=== PATIENT | male | born 1935 | race American Indian/Alaskan Native ===

== ENCOUNTER 2017-10-04 16:10 | Emergency (ER) | payer MEDICARE, BC ==
[~2017-10-04] VITALS: Ht 177.8 cm; Wt 75.7 kg
[~2017-10-04 16:10] MED LIST: APIX5TAB3 PO; ASPI81TA52 PO; ATOR40TA PO; DILT240C94 PO; DUTA0.5C40 PO; FLO0.4C PO; LISI-600 PO; LORA1TAB PO; NORCO10T PO; PANT40TA39 PO; PNV1TABL75 PO; PRAM0.253 PO
[2017-10-04 16:43] LABS: BASOPHILS % (AUTO) 0.5 % (0-1); EOSINOPHILS # (AUTO) 0.1 X10'3 (0-0.9); EOSINOPHILS % (AUTO) 1.7 % (0-6); HEMATOCRIT 42.5 % (42.0-52.0); HEMOGLOBIN 14.5 g/dl (14.0-17.9); LYMPHOCYTES # (AUTO) 2.4 X10'3 (1.1-4.8); LYMPHOCYTES % (AUTO) 42.7 % (21-51); MEAN CORPUSCULAR HEMOGLOBIN 29.8 PG (27.0-31.0); MEAN CORPUSCULAR HGB CONC 34.1 % (33.0-36.5); MEAN CORPUSCULAR VOLUME 87.4 FL (78-98); MEAN PLATELET VOLUME 6.4 FL (7.4-10.4); MONOCYTES # (AUTO) 0.5 X10'3 (0-0.9); MONOCYTES % (AUTO) 9.7 % (2-12); NEUTROPHILS # (AUTO) 2.6 X10'3 (1.8-7.7); NEUTROPHILS % (AUTO) 45.4 % (42-75); PLATELET COUNT 292 X10'3 (140-440); RED BLOOD COUNT 4.86 X10'6 (4.70-6.10); RED CELL DISTRIBUTION WIDTH 13.7 % (11.5-14.5); WHITE BLOOD COUNT 5.6 X10'3 (4.5-11.0)
[2017-10-04 16:53] LABS: PARTIAL THROMBOPLASTIN TIME 33 SECONDS (22-32); PROTHROMBIN TIME 10.2 SECONDS (9.0-12.0)
[2017-10-04 16:58] LABS: ALANINE AMINOTRANSFERASE 27 U/L (12-78); ALBUMIN 4.2 G/DL (3.4-5.0); ALBUMIN/GLOBULIN RATIO 1.1 (1.1-1.5); ALKALINE PHOSPHATASE 79 IU/L (46-116); ANION GAP 8 (8-16); ASPARTATE AMINO TRANSFERASE 24 U/L (10-37); BILIRUBIN,TOTAL 0.3 MG/DL (0.1-1.0); BLOOD UREA NITROGEN 11 MG/DL (7-18); BUN/CREATININE RATIO 12.4 (5.4-32.0); CALCIUM 8.7 MG/DL (8.5-10.1); CHLORIDE 104 MMOL/L (99-107); CREATININE 0.89 MG/DL (0.60-1.10); GLUCOSE 98 MG/DL (70-104); POTASSIUM 3.6 MMOL/L (3.5-5.1); SODIUM 143 MMOL/L (135-145); TOTAL CARBON DIOXIDE 30.9 MMOL/L (24-32); TOTAL PROTEIN 8.1 G/DL (6.4-8.2); eGFR 82 ML/MIN
[2017-10-04] MEDS ORDERED: aspirin 81mg tab.chew PO ONE (17:55)
[2017-10-04] MEDS ORDERED: nitroGLYCERIN 0.4mg SUBLingual tab SL PRN (17:55)
[2017-10-04 19:04] VITALS: BP 151/65
== END 2017-10-04 19:07 | disposition home or self-care (01) ==
LOC: ER 16:11
DX: R07.9 Chest pain, unspecified (principal); I25.10 Atherosclerotic heart disease of native coronary artery without angina pectoris; K21.9 Gastro-esophageal reflux disease without esophagitis; I48.0 Paroxysmal atrial fibrillation; E78.00 Pure hypercholesterolemia, unspecified; I25.2 Old myocardial infarction; G89.29 Other chronic pain; M79.7 Fibromyalgia; Z88.2 Allergy status to sulfonamides; Z79.01 Long term (current) use of anticoagulants; Z79.82 Long term (current) use of aspirin; Z95.1 Presence of aortocoronary bypass graft; Z98.890 Other specified postprocedural states
CPT/HCPCS: 36415; 71045; 80053; 84484; 85025; 85610; 85730; 93005; 99285

== ENCOUNTER 2018-06-08 08:13 | Emergency (ER) | payer MEDICARE, BC ==
[~2018-06-08] VITALS: Ht 177.8 cm; Wt 75.4 kg
--- NOTE | 2018-06-08 09:05 | NUR ---
patient reports both raking leaves and "struggling" to move an oven yesterday
[2018-06-08 09:09] LABS: BASOPHILS # (AUTO) 0.1 X10'3 (0-0.2); BASOPHILS % (AUTO) 1.3 % (0-1); EOSINOPHILS # (AUTO) 0.1 X10'3 (0-0.9); EOSINOPHILS % (AUTO) 1.5 % (0-6); HEMATOCRIT 44.5 % (42.0-52.0); HEMOGLOBIN 14.9 g/dl (14.0-17.9); LYMPHOCYTES # (AUTO) 2.3 X10'3 (1.1-4.8); LYMPHOCYTES % (AUTO) 32.2 % (21-51); MEAN CORPUSCULAR HEMOGLOBIN 29.9 PG (27.0-31.0); MEAN CORPUSCULAR HGB CONC 33.5 % (33.0-36.5); MEAN CORPUSCULAR VOLUME 89.3 FL (78-98); MEAN PLATELET VOLUME 7.1 FL (7.4-10.4); MONOCYTES # (AUTO) 0.7 X10'3 (0-0.9); MONOCYTES % (AUTO) 9.7 % (2-12); NEUTROPHILS % (AUTO) 55.3 % (42-75); PLATELET COUNT 370 X10'3 (140-440); RED BLOOD COUNT 4.99 X10'6 (4.70-6.10); RED CELL DISTRIBUTION WIDTH 14.9 % (11.5-14.5); WHITE BLOOD COUNT 7.3 X10'3 (4.5-11.0)
[2018-06-08 09:43] LABS: ALANINE AMINOTRANSFERASE 30 U/L (12-78); ALBUMIN 3.6 G/DL (3.4-5.0); ALBUMIN/GLOBULIN RATIO 1.1 (1.1-1.5); ALKALINE PHOSPHATASE 62 IU/L (46-116); ANION GAP 7 (8-16); ASPARTATE AMINO TRANSFERASE 20 U/L (10-37); BILIRUBIN,TOTAL 0.4 MG/DL (0.1-1.0); BLOOD UREA NITROGEN 12 MG/DL (7-18); BUN/CREATININE RATIO 17.6 (5.4-32.0); CALCIUM 8.3 MG/DL (8.5-10.1); CHLORIDE 102 MMOL/L (99-107); CREATININE 0.68 MG/DL (0.60-1.10); GLUCOSE 108 MG/DL (70-104); POTASSIUM 3.7 MMOL/L (3.5-5.1); SODIUM 140 MMOL/L (135-145); TOTAL CARBON DIOXIDE 31.1 MMOL/L (24-32); TOTAL PROTEIN 6.8 G/DL (6.4-8.2); eGFR > 90 ML/MIN
[2018-06-08 09:44] LABS: INR 1.1 INR; PARTIAL THROMBOPLASTIN TIME 34 SECONDS (22-32); PROTHROMBIN TIME 10.8 SECONDS (9.0-12.0)
[2018-06-08 10:30] VITALS: BP 117/78
== END 2018-06-08 10:35 | disposition home or self-care (01) ==
LOC: ER 08:13
DX: R07.89 Other chest pain (principal); R06.02 Shortness of breath; R42 Dizziness and giddiness; I25.10 Atherosclerotic heart disease of native coronary artery without angina pectoris; E78.00 Pure hypercholesterolemia, unspecified; I10 Essential (primary) hypertension; I25.2 Old myocardial infarction; G89.29 Other chronic pain; Z98.61 Coronary angioplasty status; Z98.890 Other specified postprocedural states; Z88.2 Allergy status to sulfonamides; Z88.8 Allergy status to other drugs, medicaments and biological substances; Z79.82 Long term (current) use of aspirin; Z79.899 Other long term (current) drug therapy
CPT/HCPCS: 36415; 71045; 80053; 84484; 85025; 85610; 85730; 93005; 99284

== ENCOUNTER 2018-10-12 11:31 | Emergency (ER) | payer MEDICARE, BC ==
[~2018-10-12] VITALS: Ht 177.8 cm; Wt 74.1 kg
[2018-10-12 12:27] LABS: BASOPHILS % (AUTO) 0.7 % (0-1); EOSINOPHILS % (AUTO) 0.4 % (0-6); HEMATOCRIT 39.5 % (42.0-52.0); HEMOGLOBIN 13.2 g/dl (14.0-17.9); LYMPHOCYTES # (AUTO) 1.7 X10'3 (1.1-4.8); LYMPHOCYTES % (AUTO) 25.2 % (21-51); MEAN CORPUSCULAR HEMOGLOBIN 29.5 PG (27.0-31.0); MEAN CORPUSCULAR HGB CONC 33.4 g/dL (33.0-36.5); MEAN CORPUSCULAR VOLUME 88.3 FL (78-98); MEAN PLATELET VOLUME 6.6 FL (7.4-10.4); MONOCYTES # (AUTO) 0.6 X10'3 (0-0.9); MONOCYTES % (AUTO) 9.1 % (2-12); NEUTROPHILS # (AUTO) 4.4 X10'3 (1.8-7.7); NEUTROPHILS % (AUTO) 64.6 % (42-75); PLATELET COUNT 316 X10'3 (140-440); RED BLOOD COUNT 4.48 X10'6 (4.70-6.10); RED CELL DISTRIBUTION WIDTH 14.5 % (11.5-14.5); WHITE BLOOD COUNT 6.8 X10'3 (4.5-11.0)
[2018-10-12 12:40] LABS: PARTIAL THROMBOPLASTIN TIME 34 SECONDS (22-32)
[2018-10-12 12:41] LABS: ALANINE AMINOTRANSFERASE 22 U/L (12-78); ALBUMIN 3.5 G/DL (3.4-5.0); ALBUMIN/GLOBULIN RATIO 1.1 (1.1-1.5); ALKALINE PHOSPHATASE 56 IU/L (46-116); ANION GAP 7 (8-16); ASPARTATE AMINO TRANSFERASE 17 U/L (10-37); BILIRUBIN,TOTAL 0.2 MG/DL (0.1-1.0); BLOOD UREA NITROGEN 14 MG/DL (7-18); BUN/CREATININE RATIO 17.7 (5.4-32.0); CALCIUM 8.5 MG/DL (8.5-10.1); CHLORIDE 104 MMOL/L (99-107); CREATININE 0.79 MG/DL (0.60-1.10); GLUCOSE 122 MG/DL (70-104); POTASSIUM 3.6 MMOL/L (3.5-5.1); SODIUM 138 MMOL/L (135-145); TOTAL PROTEIN 6.7 G/DL (6.4-8.2); eGFR > 90 ML/MIN
[2018-10-12 13:01] LABS: CLARITY,URINE CLEAR (Clear); COLOR,URINE YELLOW (Yellow); GLUCOSE, URINE NEGATIVE (Neg); KETONES,URINE NEGATIVE (Neg); LEUKOCYTE ESTERASE ,URINE NEGATIVE (Neg); NITRITES, URINE NEGATIVE (Neg); OCCULT BLOOD,URINE TRACE-INTACT (Neg); PROTEIN,URINE NEGATIVE (Neg); UROBILINOGEN,URINE 0.2 E.U/dL (0.2-1.0)
[2018-10-12 13:05] LABS: UA COLLECTION TYPE VOIDED
[2018-10-12 13:09] LABS: BACTERIA,URINE NONE SEEN /HPF (Neg); MUCUS STRANDS NONE SEEN /LPF (Neg); RBC,URINE 0-2 /HPF (0-2); RENAL CELLS, URINE FEW /HPF; SQUAMOUS EPITHELIAL CELL,UR FEW /LPF (FEW); WBC,URINE 0-4 /HPF (0-4)
[2018-10-12 13:31] VITALS: BP 115/65
== END 2018-10-12 13:36 | disposition home or self-care (01) ==
LOC: ER 11:31
DX: R42 Dizziness and giddiness (principal); R53.1 Weakness; I10 Essential (primary) hypertension; R06.02 Shortness of breath; E78.00 Pure hypercholesterolemia, unspecified; G89.29 Other chronic pain; I25.10 Atherosclerotic heart disease of native coronary artery without angina pectoris; M79.7 Fibromyalgia; Z88.8 Allergy status to other drugs, medicaments and biological substances; Z79.82 Long term (current) use of aspirin; Z79.899 Other long term (current) drug therapy
CPT/HCPCS: 36415; 70450; 71045; 80053; 81001; 84484; 85025; 85610; 85730; 93005; 99284

== ENCOUNTER 2018-12-06 12:13 | Emergency (ER) | payer MEDICARE, BC ==
[~2018-12-06 12:13] MED LIST changes: +DILT-36 PO
[2019-01-26] MEDS ORDERED: APIX5TAB3 PO (16:54)
[2019-01-26] MEDS ORDERED: DILT-94 PO (16:54)
[2019-01-26] MEDS ORDERED: MELA3TAB64 PO (16:54)
[2019-01-26] MEDS ORDERED: CHOL10002 PO (16:54)
[2019-01-26] MEDS ORDERED: FLUT16SP2 BOTHNARES (16:54)
[2019-01-26] MEDS ORDERED: MAGN400C PO (16:54)
[2019-01-26] MEDS ORDERED: DOCU100C41 PO (16:54)
== END 2018-12-06 13:06 | disposition left against medical advice (07) ==
LOC: ER 12:14
DX: S69.90XA Unspecified injury of unspecified wrist, hand and finger(s), initial encounter (principal); Z53.21 Procedure and treatment not carried out due to patient leaving prior to being seen by health care provider; X58.XXXA Exposure to other specified factors, initial encounter; Y93.89 Activity, other specified; Y92.89 Other specified places as the place of occurrence of the external cause; Y99.8 Other external cause status

== ENCOUNTER 2019-01-28 06:41 | Inpatient (IN) | payer MEDICARE, BC ==
[2019-01-26 16:51] LABS: BASOPHILS # (AUTO) 0.1 X10'3 (0-0.2); BASOPHILS % (AUTO) 0.7 % (0-1); EOSINOPHILS # (AUTO) 0.1 X10'3 (0-0.9); EOSINOPHILS % (AUTO) 1.2 % (0-6); LYMPHOCYTES # (AUTO) 2.7 X10'3 (1.1-4.8); LYMPHOCYTES % (AUTO) 37.8 % (21-51); MEAN CORPUSCULAR HGB CONC 33.1 g/dL (33.0-36.5); MEAN CORPUSCULAR VOLUME 87.5 FL (78-98); MEAN PLATELET VOLUME 6.6 FL (7.4-10.4); MONOCYTES # (AUTO) 0.7 X10'3 (0-0.9); MONOCYTES % (AUTO) 9.5 % (2-12); NEUTROPHILS # (AUTO) 3.6 X10'3 (1.8-7.7); NEUTROPHILS % (AUTO) 50.8 % (42-75); PRE OP HEMOGLOBIN 14.9 g/dL (14.0-17.9); PRE OP PLATELET COUNT 375 X10'3 (140-440); RED BLOOD COUNT 5.15 X10'6 (4.70-6.10)
[2019-01-26 16:55] LABS: CLARITY,URINE CLEAR (Clear); COLOR,URINE YELLOW (Yellow); GLUCOSE, URINE NEGATIVE (Neg); KETONES,URINE NEGATIVE (Neg); LEUKOCYTE ESTERASE ,URINE NEGATIVE (Neg); NITRITES, URINE NEGATIVE (Neg); OCCULT BLOOD,URINE TRACE-LYSED (Neg); PROTEIN,URINE NEGATIVE (Neg); UROBILINOGEN,URINE 0.2 E.U/dL (0.2-1.0)
[2019-01-26 17:00] LABS: ALBUMIN/GLOBULIN RATIO 1.1 (1.1-1.5); ALKALINE PHOSPHATASE 75 IU/L (46-116); BLOOD UREA NITROGEN 12 MG/DL (7-18); BUN/CREATININE RATIO 13.6 (5.4-32.0); CALCIUM 8.6 MG/DL (8.5-10.1); CHLORIDE 105 MMOL/L (99-107); CREATININE 0.88 MG/DL (0.60-1.10); PRE OP ALT 26 U/L (30-65); PRE OP ANION GAP 8 (8-16); PRE OP AST 26 U/L (10-37); PRE OP BILIRUB, TOTAL 0.2 MG/DL (0.0-1.0); PRE OP GLUCOSE 106 MG/DL (70-104); PRE OP POTASSIUM 3.7 MMOL/L (3.4-5.1); PRE OP SODIUM 144 MMOL/L (135-145); TOTAL CARBON DIOXIDE 31.3 MMOL/L (24-32); TOTAL PROTEIN 7.7 G/DL (6.4-8.2); eGFR 83 ML/MIN
[2019-01-26 17:01] LABS: PRE OP INR 0.9 INR; PRE OP PROTIME 9.9 SECONDS (9.0-12.0)
[2019-01-26 17:05] LABS: UA COLLECTION TYPE CLN CATCH MIDSTREAM
[2019-01-26 17:06] LABS: BACTERIA,URINE NONE SEEN /HPF (Neg); RBC,URINE 0-2 /HPF (0-2); SQUAMOUS EPITHELIAL CELL,UR FEW /LPF (FEW); WBC,URINE 0-4 /HPF (0-4)
[~2019-01-28] VITALS: Ht 177.8 cm; Wt 74.8 kg
[2019-01-28] VITALS (24 sets, daily range): BP systolic 101–179; BP diastolic 59–92
[~2019-01-28 06:41] MED LIST changes: -ASPI81TA52 PO; -ATOR40TA PO; +CHOL10002 PO; -DILT-36 PO; +DILT-94 PO; -DILT240C94 PO; +DOCU100C41 PO; -DUTA0.5C40 PO; -FLO0.4C PO; +FLUT16SP2 BOTHNARES; -LISI-600 PO; -LORA1TAB PO; +MAGN400C PO; +MELA3TAB64 PO; -PNV1TABL75 PO; +nitroPRUSSIDE in NS 100 ML IV PRN; +phenylephrine inj 20 MG in normal saline 250ml IV soln 250 ML IV PRN
[2019-01-28] MEDS ORDERED: ceFAZolin 1000mg inj ONE (06:43)
[2019-01-28] MEDS ORDERED: heparin 10,000 units/1 ML INJ ONE (06:43)
[2019-01-28] MEDS ORDERED: epiNEPHrine 1 mg/ml inj ONE (06:44)
[2019-01-28] MEDS ORDERED: LIDOcaine 1% (10mg/ml) 2ml vial ONE (06:54)
[2019-01-28] MEDS ORDERED: ringers solution, lacted 1,000 ML IV SCH ×2 (07:00→09:33)
[2019-01-28] MEDS ORDERED: famotidine 20mg tablet PO ONE ×2 (07:00→17:55)
[2019-01-28] MEDS ORDERED: cefazolin/dext.iso 2gm/50ml 50 ML IV ONE (07:00)
[2019-01-28] MEDS ORDERED: nitroPRUSSIDE in NS 100 ML IV SCH (09:35)
[2019-01-28] MEDS ORDERED: morphine 4 MG/ML inj SYRINge IV PRN ×2 (09:35)
[2019-01-28] MEDS ORDERED: labetalol 20mg/4ml (5mg/ml) syringe IV PRN (09:35)
[2019-01-28] MEDS ORDERED: hydrALAZINE 20mg/ml inj. IV PRN (09:35)
[2019-01-28] MEDS ORDERED: ondansetron/PF 4mg/2ml inj IV PRN ×2 (09:35→13:20)
[2019-01-28] MEDS ORDERED: fentaNYL/PF 50MCG/1 ML 2ML syringe IV PRN ×4 (09:35)
[2019-01-28] MEDS ORDERED: phenylephrine inj 20 MG in normal saline 250ml IV soln 248 ML IV SCH (09:35)
[2019-01-28] MEDS ORDERED: fentaNYL/PF 50MCG/1 ML 2ML syringe ONE (09:41)
[2019-01-28] MEDS ORDERED: midazolam 2 mg/2 ml injection ONE (09:42)
[2019-01-28] MEDS ORDERED: dexamethasone sod phosphate 4mg/ml inj. ONE (09:43)
[2019-01-28] MEDS ORDERED: rocuronium 10mg/ml inj IV ONE (09:43)
[2019-01-28] MEDS ORDERED: neostigmine methylsulfate 1 MG/ML 10ml vial ONE (09:43)
[2019-01-28] MEDS ORDERED: etomidate 2mg/ml inj. ONE (09:43)
[2019-01-28] MEDS ORDERED: ondansetron/PF 4mg/2ml inj ONE (09:43)
[2019-01-28] MEDS ORDERED: glycopyrrolate 0.2mg/ml inj ONE (09:43)
[2019-01-28] MEDS ORDERED: sevoflurane 250ml liquid IH ONE (10:14)
[2019-01-28] MEDS ORDERED: heparin 1,000unit/ml 10ml vial 10 ML ONE (10:36)
[2019-01-28] MEDS ORDERED: ePHEDrine 50MG/ML INJ. ONE (10:38)
--- NOTE | 2019-01-28 12:12 | NUR ---
Received from OR via ICU BED , accompanied by Anesthesiologist MANUELA and report given by Anesthesiolgist. PATIENT WITH 18G PIV IN LEFT UE RUNNING NIPRIDE AND LR. LEFT NECK DRESSING IS CDI AT THIS TIME AND DONG PRESENT. MAINTAINING SUCTION AT THIS TIME. PATIENT WITH ART LINE TO RIGHT UE. SCDS DONNED UPON ARRIVAL. Addendum: 01/28/19 at 1233 by Guillermo Walter RN, RN Amended: Links added.
[2019-01-28] MEDS ORDERED: HYDROcodone/acetaminophen 5mg/325mg tablet PO PRN (13:20)
[2019-01-28] MEDS ORDERED: naloxone 0.4 mg/ml inj IV PRN (13:20)
[2019-01-28] MEDS ORDERED: CADD PCA waste documentation MC PRN (13:20)
[2019-01-28] MEDS: HYDROmorphone/NS 1 mg/ml CADD 50 ML IV SCH ×8 (13:35→23:00)
--- NOTE | 2019-01-28 13:42 | NUR ---
ALL CRITERIA FOR TRANSFER TO THE FLOOR HAS BEEN ACHIEVED. VSS. BED LOW, CALL LIGHT AND VS SET . RN PRESENT TO ACCEPT CARE. PATIENT RESTING COMFORTABLY IN BED. BELONGINGS SENT WITH PATIENT. DRESSINGS CDI. PATIENT VSS. DENTURES X 2 IN MOUTH. PATIENT PAIN AT 4-10. PATIENTS RN PRESENT TO ACCEPT CARE. PATIENTS ACCOMPANIED TO ICU AND WILL VISIT AT GIVEN TIME. PATIENT PAIN AT A TOLERABLE LEVEL AT THIS TIME. DONG DRAIN INTACT, MAINTAINING SUCTION. LEFT NECK DRESSING IS CDI. STILL NEUROLOGICALLY INTACT. Addendum: 01/28/19 at 1351 by Guillermo Mayer - CORDELL RN Amended: Links added.
[2019-01-28] MEDS: ceFAZolin 1GM/D5W- ADD-VANTAGE 50 ML IV SCH (16:11)
[2019-01-28] MEDS: potassium CL 20mEq in D5-1/2NS 1,000 ML IV SCH (17:13)
--- NOTE | 2019-01-28 18:32 | NUR ---
Patient in room ICU 2040. I have received report from Patience LANDA, and had the opportunity to ask questions and assume patient care.
--- NOTE | 2019-01-28 19:30 | NUR ---
PT sitting up in bed with no s/s of distress noted at this time. VSS. is at bedside visiting. PT has Drsg and DONG drain to LT neck, CDI and minimal serosanguineous drainage noted in tubing and bulb. PT has Dilaudid CADD and button is within reach. Art line to Rt radial is CDI, transduced to pressure tubing and zeroed. Bed is locked and low. Call light is within reach. Will continue to monitor.
--- NOTE | 2019-01-28 22:45 | NUR ---
Art line removed d/t not working properly. Became extremely positional and would not draw. PT also c/o pain. Direct pressure held until hemostasis achieved and drsg applied. Will continue to monitor. Addendum: 01/29/19 at 0341 by Eddie Pickett RN PT is not on any vaso-active gtts
[2019-01-29] VITALS (12 sets, daily range): BP systolic 109–160; BP diastolic 48–92
[2019-01-29] MEDS: potassium CL 20mEq in D5-1/2NS 1,000 ML IV SCH ×2 (00:06→05:17)
[2019-01-29] MEDS: ceFAZolin 1GM/D5W- ADD-VANTAGE 50 ML IV SCH ×2 (00:07→07:50)
[2019-01-29] MEDS: HYDROmorphone/NS 1 mg/ml CADD 50 ML IV SCH ×6 (01:00→11:00)
--- NOTE | 2019-01-29 01:00 | NUR ---
PT sleeping with no s/s of distress noted at this time. VSS. Bed is locked and low. Call light is within reach. Will continue to monitor.
--- NOTE | 2019-01-29 06:30 | NUR ---
Patient in room ICU 2040. I have received report from Eddie LANDA and had the opportunity to ask questions and assume patient care.
--- NOTE | 2019-01-29 06:31 | NUR ---
Problems reprioritized. Patient report given, questions answered & plan of care reviewed with Dian LANDA.
--- NOTE | 2019-01-29 11:34 | NUR ---
IV D/C'd, cannula intact, patient tolerated well. Removed dressing and DONG drain from left neck; incision looks good, minimal output of DONG site, serosanguineous. No c/o pain at this time, CADD d/c'd as well.
--- NOTE | 2019-01-29 13:15 | NUR ---
Patient leaving via w/c to front lobby where he will take a private vehicle home. All belongings sent with patient.
== END 2019-01-29 13:15 | disposition home or self-care (01) | DRG 39 ==
LOC: PAS 06:41 → EDSTATUS 09:45 → ICU 2S 13:55
PROVIDERS: ADMIT Surgery; ATTEND Surgery
PROC: 03CL0ZZ Extirpation of Matter from Left Internal Carotid Artery, Open Approach (ICD-10-PCS; 2019-01-28)
PROC: 03CN0ZZ Extirpation of Matter from Left External Carotid Artery, Open Approach (ICD-10-PCS; principal; 2019-01-28 10:14)
DX: I65.22 Occlusion and stenosis of left carotid artery (principal); I25.10 Atherosclerotic heart disease of native coronary artery without angina pectoris; I10 Essential (primary) hypertension; G47.30 Sleep apnea, unspecified; K21.9 Gastro-esophageal reflux disease without esophagitis; I48.91 Unspecified atrial fibrillation; Z96.653 Presence of artificial knee joint, bilateral; M79.7 Fibromyalgia; M54.9 Dorsalgia, unspecified; G89.29 Other chronic pain; M54.2 Cervicalgia; Z95.1 Presence of aortocoronary bypass graft; Z79.01 Long term (current) use of anticoagulants; Z88.2 Allergy status to sulfonamides; Z86.73 Personal history of transient ischemic attack (TIA), and cerebral infarction without residual deficits
CPT/HCPCS: 36415; 71046; 80053; 81001; 82948; 85025; 85610; 85730; 86885; 86900; 86901; 87081; 94668; 95813; 95816; A4618; A6258; A7000; G0378; J0171; J0690; J1100; J1170; J1644; J2001; J2250; J2270; J2370; J2405; J2710; J3010; J3480; J3490; J7040; J7050; J7120

== ENCOUNTER 2019-07-29 13:10 | Inpatient (IN) | payer MEDICARE, BC ==
[~2019-07-29] VITALS: Ht 177.8 cm; Wt 75.6 kg
[~2019-07-29 13:10] MED LIST changes: +MELA3TAB39 PO; -MELA3TAB64 PO; -nitroPRUSSIDE in NS 100 ML IV PRN; -phenylephrine inj 20 MG in normal saline 250ml IV soln 250 ML IV PRN
[2019-07-29 14:21] LABS: BASOPHILS # (AUTO) 0.1 X10'3 (0-0.2); EOSINOPHILS % (AUTO) 0.7 % (0-6); HEMATOCRIT 41.2 % (42.0-52.0); LYMPHOCYTES # (AUTO) 1.5 X10'3 (1.1-4.8); LYMPHOCYTES % (AUTO) 23.4 % (21-51); MEAN CORPUSCULAR HEMOGLOBIN 28.9 PG (27.0-31.0); MONOCYTES # (AUTO) 0.5 X10'3 (0-0.9); NEUTROPHILS # (AUTO) 4.3 X10'3 (1.8-7.7); NEUTROPHILS % (AUTO) 66.9 % (42-75); PLATELET COUNT 300 X10'3 (140-440); RED BLOOD COUNT 4.85 X10'6 (4.70-6.10); RED CELL DISTRIBUTION WIDTH 14.8 % (11.5-14.5); WHITE BLOOD COUNT 6.5 X10'3 (4.5-11.0)
[2019-07-29 14:44] LABS: ALANINE AMINOTRANSFERASE 22 U/L (12-78); ALBUMIN 3.7 G/DL (3.4-5.0); ALBUMIN/GLOBULIN RATIO 1.1 (1.1-1.5); ALKALINE PHOSPHATASE 71 IU/L (46-116); ANION GAP 8 (8-16); ASPARTATE AMINO TRANSFERASE 21 U/L (10-37); BILIRUBIN,TOTAL 0.3 MG/DL (0.1-1.0); BLOOD UREA NITROGEN 18 MG/DL (7-18); BUN/CREATININE RATIO 15.5 (5.4-32.0); CALCIUM 8.1 MG/DL (8.5-10.1); CHLORIDE 106 MMOL/L (99-107); CREATININE 1.16 MG/DL (0.60-1.10); GLUCOSE 159 MG/DL (70-104); SODIUM 143 MMOL/L (135-145); TOTAL CARBON DIOXIDE 29.2 MMOL/L (24-32); eGFR 60 ML/MIN
[2019-07-29] MEDS ORDERED: potassium Cl 20 mEq SR tablet PO STA (14:59)
[2019-07-29] MEDS ORDERED: normal saline 1000ML IV soln IVB ONE (15:20)
[2019-07-29] MEDS ORDERED: bisacodyl 10mg suppository rectal RC PRN (16:20)
[2019-07-29] MEDS ORDERED: magnesium hydroxide 30ml (MOM) UD suspension PO PRN (16:20)
[2019-07-29] MEDS ORDERED: magnesium 4gm in 100ml NS 100 ML IV PRN (16:20)
[2019-07-29] MEDS ORDERED: potassium CL 10mEq/100ml bag 100 ML IV PRN ×2 (16:20)
[2019-07-29] MEDS ORDERED: HYDROcodone/acetaminophen 5mg/325mg tablet PO PRN (16:20)
[2019-07-29] MEDS ORDERED: magnesium Cl slow-release 64mg tablet PO PRN (16:20)
[2019-07-29] MEDS ORDERED: diphenhydrAMINE 25mg capsule PO PRN (16:20)
[2019-07-29] MEDS ORDERED: morphine 2 MG/ML inj. syringe IV PRN ×2 (16:20)
[2019-07-29] MEDS ORDERED: acetaminophen 650mg rectal suppository RC PRN (16:20)
[2019-07-29] MEDS ORDERED: magnesium 2GM in 50ml NS 50 ML IV PRN (16:20)
[2019-07-29] MEDS ORDERED: potassium Cl 20 mEq SR tablet PO PRN (16:20)
[2019-07-29] MEDS ORDERED: ondansetron/PF 4mg/2ml inj IV PRN (16:20)
[2019-07-29] MEDS ORDERED: mag hydrox/Alum hydrox/simeth 30ml oral suspension PO PRN (16:20)
[2019-07-29] MEDS ORDERED: acetaminophen 325mg tablet PO PRN ×2 (16:20)
[2019-07-29] MEDS ORDERED: OXYC-511 PO (16:41)
[2019-07-29 16:51] LABS: HEMOGLOBIN A1C 5.6 % (4.5-6.2)
--- NOTE | 2019-07-29 17:57 | NUR ---
Patient in room ED 15. I have received report from CORDELL Hoyos and had the opportunity to ask questions and assume patient care.
--- NOTE | 2019-07-29 18:15 | NUR ---
received report from CORDELL Morin. pt coming from ER.
--- NOTE | 2019-07-29 18:17 | NUR ---
Problems reprioritized. Patient report given, questions answered & plan of care reviewed with CORDELL Calix.
[2019-07-29 18:30] VITALS: BP 169/88
--- NOTE | 2019-07-29 18:30 | NUR ---
pt arrived to floor via gurney. pt ambulated from gurney to bed. no complaints. A&O x 4. will continue to monitor.
--- NOTE | 2019-07-29 18:42 | NUR ---
PAGER ID: [phone] MESSAGE: [phone] [facility] is ready for review. thanks. [phone]
[2019-07-29] MEDS: normal saline 1000ml 1,000 ML IV SCH (19:21)
[2019-07-29 20:00] VITALS: BP_SYST 145; BP_SYST 147; BP_SYST 154; BP_DIAS 65; BP_DIAS 82; BP_DIAS 84
[2019-07-29] MEDS: K and/or MAG REPLACEMENT MC SCH (20:00)
[2019-07-29] MEDS ORDERED: temazepam 15mg capsule PO PRN (21:00)
[2019-07-29 22:00] VITALS: BP 147/65
[2019-07-29] MEDS: potassium Cl 20 mEq SR tablet PO PRN (22:35)
[2019-07-30] MEDS: HYDROcodone/acetaminophen 10/325mg tab PO PRN ×3 (00:41→14:51)
[2019-07-30 02:00] VITALS: BP 131/83
[2019-07-30] MEDS: potassium Cl 20 mEq SR tablet PO PRN (02:39)
--- NOTE | 2019-07-30 03:13 | NUR ---
Nahum from lab called regarding morning labs. Re-draw needed as the am draw may have been dilutional. Fifi LANDA, notified and will re-order and re-draw
[2019-07-30 03:45] LABS: BASOPHILS # (AUTO) 0.1 X10'3 (0-0.2); BASOPHILS % (AUTO) 0.8 % (0-1); EOSINOPHILS # (AUTO) 0.1 X10'3 (0-0.9); EOSINOPHILS % (AUTO) 1.4 % (0-6); HEMATOCRIT 39.2 % (42.0-52.0); HEMOGLOBIN 13.2 g/dl (14.0-17.9); LYMPHOCYTES # (AUTO) 2.4 X10'3 (1.1-4.8); LYMPHOCYTES % (AUTO) 36.8 % (21-51); MEAN CORPUSCULAR HEMOGLOBIN 28.7 PG (27.0-31.0); MEAN CORPUSCULAR HGB CONC 33.6 g/dL (33.0-36.5); MEAN CORPUSCULAR VOLUME 85.5 FL (78-98); MONOCYTES # (AUTO) 0.7 X10'3 (0-0.9); MONOCYTES % (AUTO) 11.1 % (2-12); NEUTROPHILS # (AUTO) 3.3 X10'3 (1.8-7.7); NEUTROPHILS % (AUTO) 49.9 % (42-75); PLATELET COUNT 273 X10'3 (140-440); RED BLOOD COUNT 4.58 X10'6 (4.70-6.10); RED CELL DISTRIBUTION WIDTH 14.8 % (11.5-14.5); WHITE BLOOD COUNT 6.6 X10'3 (4.5-11.0)
[2019-07-30 03:55] LABS: ALANINE AMINOTRANSFERASE 20 U/L (12-78); ALBUMIN 3.3 G/DL (3.4-5.0); ALBUMIN/GLOBULIN RATIO 1.1 (1.1-1.5); ALKALINE PHOSPHATASE 62 IU/L (46-116); ANION GAP 5 (8-16); ASPARTATE AMINO TRANSFERASE 17 U/L (10-37); BILIRUBIN,TOTAL 0.4 MG/DL (0.1-1.0); BLOOD UREA NITROGEN 14 MG/DL (7-18); BUN/CREATININE RATIO 14.6 (5.4-32.0); CALCIUM 7.9 MG/DL (8.5-10.1); CHLORIDE 111 MMOL/L (99-107); CREATININE 0.96 MG/DL (0.60-1.10); GLUCOSE 98 MG/DL (70-104); POTASSIUM 3.8 MMOL/L (3.5-5.1); SODIUM 145 MMOL/L (135-145); TOTAL PROTEIN 6.2 G/DL (6.4-8.2); eGFR 75 ML/MIN
[2019-07-30 03:59] LABS: CHOL/HDL RATIO 4.1 (0.00-4.99); CHOLESTEROL 175 MG/DL (0-200); HDL CHOLESTEROL 43 MG/DL (35-60); LDL CHOLESTEROL 120 MG/DL (50-100); PHOSPHORUS 3.4 MG/DL (2.3-4.5); TRIGLYCERIDES 96 MG/DL (20-135); TROPONIN I 0.04 NG/ML (0.0-0.05)
[2019-07-30 04:25] LABS: CLARITY,URINE CLEAR (Clear); COLOR,URINE YELLOW (Yellow); GLUCOSE, URINE NEGATIVE (Neg); KETONES,URINE NEGATIVE (Neg); LEUKOCYTE ESTERASE ,URINE NEGATIVE (Neg); NITRITES, URINE NEGATIVE (Neg); OCCULT BLOOD,URINE NEGATIVE (Neg); PH,URINE 7.5 (4.8-8.0); PROTEIN,URINE NEGATIVE (Neg); UROBILINOGEN,URINE 0.2 E.U/dL (0.2-1.0)
[2019-07-30 04:44] LABS: UA COLLECTION TYPE CLN CATCH MIDSTREAM
[2019-07-30 06:00] VITALS: BP 163/85
--- NOTE | 2019-07-30 06:23 | NUR ---
gave report to CORDELL Morin
--- NOTE | 2019-07-30 06:40 | NUR ---
Patient in room MED 313. I have received report from CORDELL Calix and had the opportunity to ask questions and assume patient care.
[2019-07-30 08:00] VITALS: BP_SYST 149; BP_SYST 152; BP_SYST 168; BP_DIAS 83; BP_DIAS 95; BP_DIAS 99
[2019-07-30] MEDS: K and/or MAG REPLACEMENT MC SCH (08:00)
[2019-07-30] MEDS ORDERED: apixaban 5mg tablet PO SCH (08:00)
[2019-07-30] MEDS ORDERED: pantoprazole 40mg Tablet.DR PO SCH (08:00)
[2019-07-30] MEDS ORDERED: fluticasone nasal spray 16GM bottle NS SCH (08:00)
[2019-07-30] MEDS ORDERED: magnesium oxide 400mg tablet PO SCH (08:00)
[2019-07-30] MEDS ORDERED: diltiazem CD 120mg capsule (once-daily) PO SCH (08:00)
[2019-07-30 11:00] VITALS: BP 168/99
[2019-07-30] MEDS ORDERED: atorvastatin 20mg tablet PO SCH (12:10)
[2019-07-30] MEDS ORDERED: levoFLOXACIN 750MG TABLET PO SCH (12:10)
[2019-07-30] MEDS: normal saline 1000ml 1,000 ML IV SCH (12:20)
--- NOTE | 2019-07-30 14:03 | NUR ---
Patient arrived back to the ACCE unit in w/c. Patient is alert and oriented and in stable condition. data reduction technician brought patient back to the floor.
--- NOTE | 2019-07-30 14:38 | NUR ---
PAGER ID: [phone] MESSAGE: [phone]. pt. Korey Samuels. pt. MRI results are in. Thank you. CORDELL Ramirez [phone]
[2019-07-30] MEDS ORDERED: DILT120C88 PO (14:47)
[2019-07-30] MEDS ORDERED: ALBU8.5H8 INH (14:56)
[2019-07-30] MEDS ORDERED: ATOR20TA66 PO (14:56)
[2019-07-30] MEDS ORDERED: CARCD120C PO (14:56)
[2019-07-30] MEDS ORDERED: MECL-159 PO (14:56)
[2019-07-30] MEDS ORDERED: LEVO500T89 PO (14:56)
[2019-07-30 15:00] VITALS: BP 158/85
--- NOTE | 2019-07-30 16:46 | NUR ---
pt. was discharged from facility at 1618. pt. was accompanied down to lobby by staff to meet his family who was picking him up. pt. signed and understood all paperwork. meds were called into the [facility]. pt. IV was d/c intact. pt. understands to make appointments with his PCP and manager neonatal as instructed. pt. left with all belongings.
[2019-07-30] MEDS ORDERED: pramipexole 0.25mg tablet PO SCH (21:00)
[2019-07-30] MEDS ORDERED: vitamin D (cholecalciferol) 1,000 unit tablet PO SCH (21:00)
[2019-07-30] MEDS ORDERED: Melatonin 3mg tablet PO SCH (21:00)
[2019-07-31] MEDS ORDERED: CARCD120C PO (09:48)
== END 2019-07-30 16:20 | disposition home or self-care (01) | DRG 149 ==
LOC: ER 13:11 → ED HOLD 16:20 → EDBEDREQ 16:55 → MED 3N 18:30
PROVIDERS: ADMIT Family Medicine; ATTEND Family Medicine
DX: H81.10 Benign paroxysmal vertigo, unspecified ear (principal); E87.6 Hypokalemia; E78.00 Pure hypercholesterolemia, unspecified; E78.5 Hyperlipidemia, unspecified; G89.4 Chronic pain syndrome; I25.10 Atherosclerotic heart disease of native coronary artery without angina pectoris; I48.91 Unspecified atrial fibrillation; F10.10 Alcohol abuse, uncomplicated; F11.10 Opioid abuse, uncomplicated; Z96.653 Presence of artificial knee joint, bilateral; G47.33 Obstructive sleep apnea (adult) (pediatric); M54.9 Dorsalgia, unspecified; I10 Essential (primary) hypertension; I44.0 Atrioventricular block, first degree; K21.9 Gastro-esophageal reflux disease without esophagitis; M79.7 Fibromyalgia; N40.0 Benign prostatic hyperplasia without lower urinary tract symptoms; I25.2 Old myocardial infarction; Z79.01 Long term (current) use of anticoagulants; Z87.891 Personal history of nicotine dependence; Z95.1 Presence of aortocoronary bypass graft; Z88.8 Allergy status to other drugs, medicaments and biological substances; Z88.2 Allergy status to sulfonamides; Z98.61 Coronary angioplasty status; Z82.49 Family history of ischemic heart disease and other diseases of the circulatory system; Z83.3 Family history of diabetes mellitus; Z82.3 Family history of stroke; Z71.51 Drug abuse counseling and surveillance of drug abuser
CPT/HCPCS: 36415; 70450; 70544; 70551; 71045; 80053; 80061; 81003; 83036; 83735; 83880; 84100; 84443; 84484; 85025; 85610; 87081; 92508; 92616; 93005; 93306; 93880; 97161; 97530; 99285; G0378; J7030

== ENCOUNTER 2019-07-30 21:23 | Observation (INO) | payer MEDICARE, BC ==
[~2019-07-30] VITALS: Ht 177.8 cm; Wt 77.7 kg
[~2019-07-30 21:23] MED LIST changes: +ALBU8.5H8 INH; +ATOR20TA66 PO; +CARCD120C PO; +DILT120C88 PO; +LEVO500T89 PO; +MECL-159 PO; -NORCO10T PO; +OXYC-511 PO
[2019-07-30 21:46] LABS: BASOPHILS # (AUTO) 0.1 X10'3 (0-0.2); BASOPHILS % (AUTO) 1.2 % (0-1); EOSINOPHILS # (AUTO) 0.2 X10'3 (0-0.9); EOSINOPHILS % (AUTO) 1.4 % (0-6); HEMATOCRIT 39.2 % (42.0-52.0); HEMOGLOBIN 13.2 g/dl (14.0-17.9); LYMPHOCYTES # (AUTO) 3.8 X10'3 (1.1-4.8); LYMPHOCYTES % (AUTO) 35.2 % (21-51); MEAN CORPUSCULAR HGB CONC 33.7 g/dL (33.0-36.5); MEAN CORPUSCULAR VOLUME 85.9 FL (78-98); MEAN PLATELET VOLUME 6.9 FL (7.4-10.4); MONOCYTES # (AUTO) 0.8 X10'3 (0-0.9); MONOCYTES % (AUTO) 7.2 % (2-12); PLATELET COUNT 274 X10'3 (140-440); RED BLOOD COUNT 4.57 X10'6 (4.70-6.10); RED CELL DISTRIBUTION WIDTH 14.8 % (11.5-14.5); WHITE BLOOD COUNT 10.9 X10'3 (4.5-11.0)
[2019-07-30 21:57] LABS: ALANINE AMINOTRANSFERASE 15 U/L (12-78); ALBUMIN 3.5 G/DL (3.4-5.0); ALBUMIN/GLOBULIN RATIO 1.1 (1.1-1.5); ALKALINE PHOSPHATASE 63 IU/L (46-116); ANION GAP 8 (8-16); ASPARTATE AMINO TRANSFERASE 21 U/L (10-37); BILIRUBIN,TOTAL 0.5 MG/DL (0.1-1.0); BLOOD UREA NITROGEN 14 MG/DL (7-18); BUN/CREATININE RATIO 12.5 (5.4-32.0); CALCIUM 7.7 MG/DL (8.5-10.1); CHLORIDE 108 MMOL/L (99-107); CREATININE 1.12 MG/DL (0.60-1.10); GLUCOSE 106 MG/DL (70-104); POTASSIUM 3.8 MMOL/L (3.5-5.1); SODIUM 142 MMOL/L (135-145); TOTAL CARBON DIOXIDE 25.6 MMOL/L (24-32); TOTAL PROTEIN 6.7 G/DL (6.4-8.2); eGFR 63 ML/MIN
[2019-07-30 22:04] LABS: MAGNESIUM 1.9 MG/DL (1.5-2.4); TROPONIN I < 0.04 NG/ML (0.0-0.05)
[2019-07-30] MEDS ORDERED: magnesium hydroxide 30ml (MOM) UD suspension PO PRN (22:45)
[2019-07-30] MEDS ORDERED: potassium Cl 20 mEq SR tablet PO PRN ×2 (22:45)
[2019-07-30] MEDS ORDERED: acetaminophen 325mg tablet PO PRN (22:45)
[2019-07-30] MEDS ORDERED: potassium CL 10mEq/100ml bag 100 ML IV PRN ×2 (22:45)
[2019-07-30] MEDS ORDERED: mag hydrox/Alum hydrox/simeth 30ml oral suspension PO PRN (22:45)
[2019-07-30] MEDS ORDERED: magnesium Cl slow-release 64mg tablet PO PRN (22:45)
[2019-07-30] MEDS ORDERED: ondansetron/PF 4mg/2ml inj IV PRN (22:45)
[2019-07-30] MEDS ORDERED: magnesium 2GM in 50ml NS 50 ML IV PRN (22:45)
[2019-07-30] MEDS ORDERED: magnesium 4gm in 100ml NS 100 ML IV PRN (22:45)
[2019-07-30] MEDS ORDERED: oxyCODONE/APAP 10/325mg tablet PO PRN (22:50)
[2019-07-30] MEDS ORDERED: docusate sod 100mg capsule PO PRN (22:50)
[2019-07-30] MEDS ORDERED: albuterol 2.5 MG/3 ML nebule NEB PRN (22:50)
--- NOTE | 2019-07-30 23:21 | NUR ---
House sup contacted unit for re-admission.
--- NOTE | 2019-07-31 00:50 | NUR ---
Received report from CORDELL Vera in ER. Patient arrived at the unit accompanied my WEIGHT REDUCING TECHNICIAN. Patient alert and oriented x4, VS obtained, in RA , denies CP, SOB, dizziness, and rated pain 8/10.
[2019-07-31 01:00] VITALS: BP 153/74
[2019-07-31 02:00] VITALS: BP 107/43
[2019-07-31 03:59] LABS: BASOPHILS # (AUTO) 0.1 X10'3 (0-0.2); BASOPHILS % (AUTO) 0.7 % (0-1); EOSINOPHILS # (AUTO) 0.1 X10'3 (0-0.9); EOSINOPHILS % (AUTO) 0.8 % (0-6); HEMATOCRIT 39.2 % (42.0-52.0); HEMOGLOBIN 13.4 g/dl (14.0-17.9); LYMPHOCYTES # (AUTO) 2.1 X10'3 (1.1-4.8); LYMPHOCYTES % (AUTO) 30.6 % (21-51); MEAN CORPUSCULAR HEMOGLOBIN 29.3 PG (27.0-31.0); MEAN CORPUSCULAR HGB CONC 34.3 g/dL (33.0-36.5); MEAN CORPUSCULAR VOLUME 85.6 FL (78-98); MEAN PLATELET VOLUME 6.9 FL (7.4-10.4); MONOCYTES # (AUTO) 0.6 X10'3 (0-0.9); MONOCYTES % (AUTO) 8.6 % (2-12); NEUTROPHILS # (AUTO) 4.1 X10'3 (1.8-7.7); NEUTROPHILS % (AUTO) 59.3 % (42-75); PLATELET COUNT 257 X10'3 (140-440); RED BLOOD COUNT 4.58 X10'6 (4.70-6.10); RED CELL DISTRIBUTION WIDTH 14.6 % (11.5-14.5); WHITE BLOOD COUNT 6.9 X10'3 (4.5-11.0)
[2019-07-31 04:13] LABS: ALANINE AMINOTRANSFERASE 19 U/L (12-78); ALBUMIN 3.4 G/DL (3.4-5.0); ALBUMIN/GLOBULIN RATIO 1.1 (1.1-1.5); ALKALINE PHOSPHATASE 64 IU/L (46-116); ANION GAP 8 (8-16); ASPARTATE AMINO TRANSFERASE 20 U/L (10-37); BILIRUBIN,TOTAL 0.6 MG/DL (0.1-1.0); BLOOD UREA NITROGEN 18 MG/DL (7-18); CALCIUM 8.3 MG/DL (8.5-10.1); CHLORIDE 106 MMOL/L (99-107); GLUCOSE 124 MG/DL (70-104); POTASSIUM 3.9 MMOL/L (3.5-5.1); SODIUM 141 MMOL/L (135-145); TOTAL CARBON DIOXIDE 27.2 MMOL/L (24-32); TOTAL PROTEIN 6.5 G/DL (6.4-8.2); eGFR 58 ML/MIN
[2019-07-31 04:16] LABS: MAGNESIUM 2.2 MG/DL (1.5-2.4)
[2019-07-31 06:00] VITALS: BP 125/80
--- NOTE | 2019-07-31 06:28 | NUR ---
Problems reprioritized. Patient report given, questions answered & plan of care reviewed with CORDELL Prather. Patient stable at shift change
--- NOTE | 2019-07-31 06:30 | NUR ---
ORIENTEE documentation: I have reviewed and agree with interventions, assessments performed and documented by CORDELL PÉREZ. ORIENTEE Medication Administration: For this medication-pass time frame, medication were reviewed, dispensed, administered and documented per hospital policy by CORDELL PÉREZ .
--- NOTE | 2019-07-31 06:39 | NUR ---
Patient in room MED 313. I have received report from CORDELL Arevalo and had the opportunity to ask questions and assume patient care.
[2019-07-31] MEDS ORDERED: apixaban 5mg tablet PO SCH (08:00)
[2019-07-31] MEDS ORDERED: K and/or MAG REPLACEMENT MC SCH (08:00)
[2019-07-31] MEDS ORDERED: magnesium oxide 400mg tablet PO SCH (08:00)
[2019-07-31] MEDS ORDERED: pantoprazole 40mg Tablet.DR PO SCH (08:00)
[2019-07-31] MEDS ORDERED: fluticasone nasal spray 16GM bottle NS SCH (08:00)
[2019-07-31] MEDS ORDERED: atorvastatin 20mg tablet PO SCH (08:00)
[2019-07-31] MEDS ORDERED: diltiazem CD 120mg capsule (once-daily) PO SCH (08:00)
[2019-07-31] MEDS ORDERED: CARCD120C PO (09:48)
--- NOTE | 2019-07-31 12:07 | NUR ---
reviewed all discharge instructions,including decreased dose of cardizem,prescription confirmed at [facility],reviewed heart rate and bp parameters for cardizem MD instructions for f/u appts and d/c etoh caution with pain meds ,reminded to document bp and heart rate,bring into PMD appt ,also dr. knott appt, sl dc'd lfa site clear,pt dc'd via w/c with all belongings
[2019-07-31] MEDS ORDERED: Melatonin 3mg tablet PO SCH (21:00)
[2019-07-31] MEDS ORDERED: pramipexole 0.25mg tablet PO SCH (21:00)
--- NOTE | 2019-08-03 12:26 | NUR ---
Case Management DC follow up: spoke to pt via telephone. Reports "feeling fine", "I'm alive". Pt in good spirits. Denies acute CP, emergent general pain, SOB, respiratory distress, NV, dizziness, additional syncope episodes, abd pain, HALL, blurry vision. Verbalizes understanding of medications and why prescribed/understands changes in dosages & meds to stop. Taking as ordered, no ase noted r/t polypharmacy/new meds. verbalizes understanding of s/s that would warrant 9-11/ER visit for evaluation. Acknowledges importance of scheduling/keeping appointments w/PCP/Criss Correa, awaiting call back to schedule/referrals/specialists/Dr Myles, awaiting call back to schedule and discuss cardiozem dosage. reconcile meds. Needs met, questions answered at DC. No further questions at this time.
== END 2019-07-31 11:30 | disposition home or self-care (01) ==
LOC: ER 21:24 → ED HOLD 22:44 → MED 3N 07-31 00:43
PROVIDERS: ADMIT Internal Medicine; ATTEND Internal Medicine
DX: R55 Syncope and collapse (principal); R00.1 Bradycardia, unspecified; I25.10 Atherosclerotic heart disease of native coronary artery without angina pectoris; I10 Essential (primary) hypertension; I48.91 Unspecified atrial fibrillation; K21.9 Gastro-esophageal reflux disease without esophagitis; Z71.6 Tobacco abuse counseling; F10.10 Alcohol abuse, uncomplicated; G89.4 Chronic pain syndrome; M54.9 Dorsalgia, unspecified; I25.2 Old myocardial infarction; G47.30 Sleep apnea, unspecified; Z98.61 Coronary angioplasty status
CPT/HCPCS: 36415; 71045; 80053; 83735; 83880; 84484; 85025; 87081; 93005; 99285; G0378

== ENCOUNTER 2020-03-29 12:15 | Emergency (ER) | payer MEDICARE, BC ==
[~2020-03-29] VITALS: Ht 177.8 cm; Wt 72.5 kg
[~2020-03-29 12:15] MED LIST changes: -DILT-94 PO; -DILT120C88 PO; -LEVO500T89 PO; -MECL-159 PO; -MELA3TAB39 PO; -OXYC-511 PO; +OXYC1TAB17 PO
[2020-03-29 13:10] LABS: BASOPHILS # (AUTO) 0.1 X10'3 (0-0.2); BASOPHILS % (AUTO) 0.8 % (0-1); EOSINOPHILS # (AUTO) 0.1 X10'3 (0-0.9); EOSINOPHILS % (AUTO) 0.6 % (0-6); HEMATOCRIT 44.1 % (42.0-52.0); HEMOGLOBIN 14.6 g/dl (14.0-17.9); LYMPHOCYTES # (AUTO) 1.7 X10'3 (1.1-4.8); LYMPHOCYTES % (AUTO) 21.1 % (21-51); MEAN CORPUSCULAR HEMOGLOBIN 29.4 PG (27.0-31.0); MEAN CORPUSCULAR HGB CONC 33.1 g/dL (33.0-36.5); MEAN CORPUSCULAR VOLUME 88.9 FL (78-98); MEAN PLATELET VOLUME 6.8 FL (7.4-10.4); MONOCYTES # (AUTO) 0.5 X10'3 (0-0.9); MONOCYTES % (AUTO) 6.6 % (2-12); NEUTROPHILS # (AUTO) 5.9 X10'3 (1.8-7.7); NEUTROPHILS % (AUTO) 70.9 % (42-75); PLATELET COUNT 310 X10'3 (140-440); RED BLOOD COUNT 4.96 X10'6 (4.70-6.10); RED CELL DISTRIBUTION WIDTH 14.8 % (11.5-14.5); WHITE BLOOD COUNT 8.3 X10'3 (4.5-11.0)
[2020-03-29 13:23] LABS: D-DIMER 0.53 MG/L FEU (0-0.50)
[2020-03-29 13:26] LABS: ALANINE AMINOTRANSFERASE 36 U/L (12-78); ALBUMIN 3.7 G/DL (3.4-5.0); ALBUMIN/GLOBULIN RATIO 1.1 (1.1-1.5); ALKALINE PHOSPHATASE 67 IU/L (46-116); ANION GAP 6 (8-16); ASPARTATE AMINO TRANSFERASE 27 U/L (10-37); BILIRUBIN,TOTAL 0.4 MG/DL (0.1-1.0); BLOOD UREA NITROGEN 13 MG/DL (7-18); BUN/CREATININE RATIO 15.5 (5.4-32.0); CALCIUM 8.5 MG/DL (8.5-10.1); CHLORIDE 107 MMOL/L (99-107); CREATININE 0.84 MG/DL (0.60-1.10); GLUCOSE 97 MG/DL (70-104); POTASSIUM 3.7 MMOL/L (3.5-5.1); SODIUM 144 MMOL/L (135-145); TOTAL CARBON DIOXIDE 31.2 MMOL/L (24-32); TOTAL PROTEIN 7.2 G/DL (6.4-8.2); eGFR 87 ML/MIN
[2020-03-29 14:47] VITALS: BP 174/105
== END 2020-03-29 15:15 | disposition home or self-care (01) ==
LOC: ER 12:15
DX: R06.02 Shortness of breath (principal); I48.91 Unspecified atrial fibrillation; I25.10 Atherosclerotic heart disease of native coronary artery without angina pectoris; E78.00 Pure hypercholesterolemia, unspecified; I10 Essential (primary) hypertension; G47.30 Sleep apnea, unspecified; K21.9 Gastro-esophageal reflux disease without esophagitis; G89.29 Other chronic pain; M79.7 Fibromyalgia; Z95.5 Presence of coronary angioplasty implant and graft; Z98.890 Other specified postprocedural states; Z88.2 Allergy status to sulfonamides; Z88.8 Allergy status to other drugs, medicaments and biological substances; Z79.899 Other long term (current) drug therapy
CPT/HCPCS: 36415; 71045; 80053; 83880; 84484; 85025; 85379; 93005; 99285

== ENCOUNTER 2020-05-25 08:42 | Outpatient (CLI) | payer MEDICARE, BC ==
[~2020-05-25] VITALS: Ht 177.8 cm; Wt 72.6 kg
[2020-05-25] MEDS ORDERED: albuterol 2.5 MG/3 ML nebule NEB ONE (09:40)
== END 2020-05-25 23:59 | disposition home or self-care (01) ==
LOC: RT 08:42
PROVIDERS: ATTEND Family Medicine
DX: R94.2 Abnormal results of pulmonary function studies (principal); J98.4 Other disorders of lung
CPT/HCPCS: 94060; 94727; 94729; 94760

== ENCOUNTER 2020-06-22 02:54 | Outpatient (CLI) | payer MEDICARE, BC | END 2020-06-22 23:59 | disposition home or self-care (01) | LOC: RT 02:54 | PROVIDERS: ATTEND Family Medicine | DX: J98.4 Other disorders of lung (principal) | CPT/HCPCS: 94618 ==

== ENCOUNTER 2020-07-28 11:10 | Emergency (ER) | payer MEDICARE, BC ==
[~2020-07-28] VITALS: Ht 177.8 cm; Wt 73.2 kg
[2020-07-28 11:35] LABS: BASOPHILS # (AUTO) 0.1 X10'3 (0-0.2); BASOPHILS % (AUTO) 0.9 % (0-1); EOSINOPHILS % (AUTO) 0.6 % (0-6); HEMATOCRIT 43.3 % (42.0-52.0); HEMOGLOBIN 14.1 g/dl (14.0-17.9); LYMPHOCYTES # (AUTO) 1.4 X10'3 (1.1-4.8); LYMPHOCYTES % (AUTO) 21.4 % (21-51); MEAN CORPUSCULAR HEMOGLOBIN 29.3 PG (27.0-31.0); MEAN CORPUSCULAR HGB CONC 32.7 g/dL (33.0-36.5); MEAN CORPUSCULAR VOLUME 89.6 FL (78-98); MEAN PLATELET VOLUME 6.6 FL (7.4-10.4); MONOCYTES # (AUTO) 0.6 X10'3 (0-0.9); MONOCYTES % (AUTO) 8.9 % (2-12); NEUTROPHILS # (AUTO) 4.4 X10'3 (1.8-7.7); NEUTROPHILS % (AUTO) 68.2 % (42-75); PLATELET COUNT 317 X10'3 (140-440); RED BLOOD COUNT 4.82 X10'6 (4.70-6.10); RED CELL DISTRIBUTION WIDTH 14.4 % (11.5-14.5); WHITE BLOOD COUNT 6.4 X10'3 (4.5-11.0)
[2020-07-28 11:51] LABS: ALANINE AMINOTRANSFERASE 28 U/L (12-78); ALBUMIN 3.9 G/DL (3.4-5.0); ALBUMIN/GLOBULIN RATIO 1.1 (1.1-1.5); ALKALINE PHOSPHATASE 65 IU/L (46-116); ANION GAP 5 (8-16); ASPARTATE AMINO TRANSFERASE 25 U/L (10-37); BILIRUBIN,TOTAL 0.4 MG/DL (0.1-1.0); BLOOD UREA NITROGEN 19 MG/DL (7-18); BUN/CREATININE RATIO 17.6 (5.4-32.0); CALCIUM 8.8 MG/DL (8.5-10.1); CHLORIDE 102 MMOL/L (99-107); CREATININE 1.08 MG/DL (0.60-1.10); GLUCOSE 145 MG/DL (70-104); POTASSIUM 3.8 MMOL/L (3.5-5.1); SODIUM 139 MMOL/L (135-145); TOTAL CARBON DIOXIDE 31.8 MMOL/L (24-32); TOTAL PROTEIN 7.4 G/DL (6.4-8.2); eGFR 65 ML/MIN
[2020-07-28 14:48] VITALS: BP 174/102
== END 2020-07-28 15:48 | disposition home or self-care (01) ==
LOC: ER 11:11
DX: R07.89 Other chest pain (principal); R06.02 Shortness of breath; I48.91 Unspecified atrial fibrillation; I25.10 Atherosclerotic heart disease of native coronary artery without angina pectoris; E78.00 Pure hypercholesterolemia, unspecified; I10 Essential (primary) hypertension; I25.2 Old myocardial infarction; K21.9 Gastro-esophageal reflux disease without esophagitis; G89.29 Other chronic pain; Z98.890 Other specified postprocedural states; Z72.89 Other problems related to lifestyle; Z88.8 Allergy status to other drugs, medicaments and biological substances; Z88.2 Allergy status to sulfonamides; Z79.899 Other long term (current) drug therapy
CPT/HCPCS: 36415; 71045; 80053; 83880; 84484; 85025; 93005; 99285

== ENCOUNTER 2020-08-03 04:14 | Emergency (ER) | payer MEDICARE, BC ==
[~2020-08-03] VITALS: Ht 177.8 cm; Wt 75.0 kg
[2020-08-03] MEDS ORDERED: aspirin 81mg tab.chew PO ONE (04:30)
[2020-08-03 04:43] LABS: BASOPHILS # (AUTO) 0.1 X10'3 (0-0.2); EOSINOPHILS # (AUTO) 0.2 X10'3 (0-0.9); EOSINOPHILS % (AUTO) 2.3 % (0-6); HEMATOCRIT 42.5 % (42.0-52.0); HEMOGLOBIN 14.1 g/dl (14.0-17.9); LYMPHOCYTES # (AUTO) 2.2 X10'3 (1.1-4.8); LYMPHOCYTES % (AUTO) 29.1 % (21-51); MEAN CORPUSCULAR HEMOGLOBIN 29.2 PG (27.0-31.0); MEAN CORPUSCULAR HGB CONC 33.1 g/dL (33.0-36.5); MEAN CORPUSCULAR VOLUME 88.4 FL (78-98); MONOCYTES # (AUTO) 0.8 X10'3 (0-0.9); MONOCYTES % (AUTO) 10.5 % (2-12); NEUTROPHILS # (AUTO) 4.2 X10'3 (1.8-7.7); NEUTROPHILS % (AUTO) 57.1 % (42-75); PLATELET COUNT 303 X10'3 (140-440); RED BLOOD COUNT 4.81 X10'6 (4.70-6.10); RED CELL DISTRIBUTION WIDTH 14.2 % (11.5-14.5); WHITE BLOOD COUNT 7.4 X10'3 (4.5-11.0)
[2020-08-03 04:57] LABS: ALANINE AMINOTRANSFERASE 32 U/L (12-78); ALBUMIN 3.9 G/DL (3.4-5.0); ALBUMIN/GLOBULIN RATIO 1.2 (1.1-1.5); ALKALINE PHOSPHATASE 68 IU/L (46-116); ANION GAP 7 (8-16); ASPARTATE AMINO TRANSFERASE 28 U/L (10-37); BILIRUBIN,TOTAL 0.5 MG/DL (0.1-1.0); BLOOD UREA NITROGEN 16 MG/DL (7-18); BUN/CREATININE RATIO 15.7 (5.4-32.0); CALCIUM 8.7 MG/DL (8.5-10.1); CHLORIDE 105 MMOL/L (99-107); CREATININE 1.02 MG/DL (0.60-1.10); GLUCOSE 122 MG/DL (70-104); POTASSIUM 3.3 MMOL/L (3.5-5.1); SODIUM 142 MMOL/L (135-145); TOTAL CARBON DIOXIDE 29.8 MMOL/L (24-32); TOTAL PROTEIN 7.1 G/DL (6.4-8.2); eGFR 70 ML/MIN
[2020-08-03 05:05] LABS: MAGNESIUM 2.6 MG/DL (1.5-2.4); TROPONIN I < 0.04 NG/ML (0.0-0.05)
[2020-08-03 07:59] VITALS: BP 146/85
[2020-08-03] MEDS ORDERED: potassium Cl 20 mEq SR tablet PO ONE (08:10)
== END 2020-08-03 08:30 | disposition home or self-care (01) ==
LOC: ER 04:15
DX: R07.89 Other chest pain (principal); R06.02 Shortness of breath; E87.6 Hypokalemia; R42 Dizziness and giddiness; I48.91 Unspecified atrial fibrillation; I25.10 Atherosclerotic heart disease of native coronary artery without angina pectoris; E78.00 Pure hypercholesterolemia, unspecified; I10 Essential (primary) hypertension; I25.2 Old myocardial infarction; K21.9 Gastro-esophageal reflux disease without esophagitis; G89.29 Other chronic pain; Z98.890 Other specified postprocedural states; Z72.89 Other problems related to lifestyle; Z88.8 Allergy status to other drugs, medicaments and biological substances; Z88.2 Allergy status to sulfonamides; Z79.899 Other long term (current) drug therapy
CPT/HCPCS: 36415; 71045; 80053; 83735; 83880; 84484; 85025; 93005; 99285

== ENCOUNTER 2020-08-05 00:59 | Emergency (ER) | payer MEDICARE, BC ==
[~2020-08-05] VITALS: Ht 177.8 cm; Wt 75.0 kg
[2020-08-05 01:32] VITALS: BP 134/78
== END 2020-08-05 01:39 | disposition home or self-care (01) ==
LOC: ER 01:00
DX: I95.9 Hypotension, unspecified (principal); T50.995A Adverse effect of other drugs, medicaments and biological substances, initial encounter; I25.10 Atherosclerotic heart disease of native coronary artery without angina pectoris; E78.00 Pure hypercholesterolemia, unspecified; I10 Essential (primary) hypertension; I25.2 Old myocardial infarction; K21.9 Gastro-esophageal reflux disease without esophagitis; G47.30 Sleep apnea, unspecified; G89.29 Other chronic pain; M79.7 Fibromyalgia; Z95.1 Presence of aortocoronary bypass graft; Z98.61 Coronary angioplasty status; Z98.890 Other specified postprocedural states; Z72.89 Other problems related to lifestyle; Z88.8 Allergy status to other drugs, medicaments and biological substances; Z88.2 Allergy status to sulfonamides; Z79.01 Long term (current) use of anticoagulants; Z79.899 Other long term (current) drug therapy; Y92.89 Other specified places as the place of occurrence of the external cause
CPT/HCPCS: 99282

== ENCOUNTER 2021-04-15 08:17 | Emergency (ER) | payer MEDICARE, BC ==
[~2021-04-15] VITALS: Ht 177.8 cm; Wt 72.0 kg
[~2021-04-15 08:17] MED LIST changes: +ALBU8.5H17 INH; -ALBU8.5H8 INH
[2021-04-15 09:50] LABS: BASOPHILS # (AUTO) 0.1 X10'3 (0-0.2); EOSINOPHILS # (AUTO) 0.2 X10'3 (0-0.9); EOSINOPHILS % (AUTO) 2.3 % (0-6); HEMATOCRIT 42.5 % (42.0-52.0); HEMOGLOBIN 14.5 g/dl (14.0-17.9); LYMPHOCYTES # (AUTO) 2.3 X10'3 (1.1-4.8); LYMPHOCYTES % (AUTO) 31.1 % (21-51); MEAN CORPUSCULAR HEMOGLOBIN 29.6 PG (27.0-31.0); MONOCYTES # (AUTO) 0.8 X10'3 (0-0.9); MONOCYTES % (AUTO) 10.6 % (2-12); NEUTROPHILS # (AUTO) 4.1 X10'3 (1.8-7.7); PLATELET COUNT 283 X10'3 (140-440); RED BLOOD COUNT 4.89 X10'6 (4.70-6.10); RED CELL DISTRIBUTION WIDTH 14.8 % (11.5-14.5); WHITE BLOOD COUNT 7.5 X10'3 (4.5-11.0)
[2021-04-15 10:13] LABS: ALANINE AMINOTRANSFERASE 28 U/L (12-78); ALBUMIN 4.1 G/DL (3.4-5.0); ALBUMIN/GLOBULIN RATIO 1.2 (1.1-1.5); ALKALINE PHOSPHATASE 63 IU/L (46-116); ANION GAP 4 (8-16); ASPARTATE AMINO TRANSFERASE 27 U/L (10-37); BILIRUBIN,TOTAL 0.5 MG/DL (0.1-1.0); BLOOD UREA NITROGEN 19 MG/DL (7-18); BUN/CREATININE RATIO 16.8 (5.4-32.0); CALCIUM 8.5 MG/DL (8.5-10.1); CHLORIDE 101 MMOL/L (99-107); CREATININE 1.13 MG/DL (0.60-1.10); GLUCOSE 103 MG/DL (70-104); SODIUM 137 MMOL/L (135-145); TOTAL CARBON DIOXIDE 31.6 MMOL/L (24-32); TOTAL PROTEIN 7.6 G/DL (6.4-8.2); eGFR 62 ML/MIN
[2021-04-15 21:21] VITALS: BP 113/77
== END 2021-04-15 21:23 | disposition home or self-care (01) ==
LOC: ER 08:17
DX: R07.9 Chest pain, unspecified (principal); I11.9 Hypertensive heart disease without heart failure; E78.00 Pure hypercholesterolemia, unspecified; K21.9 Gastro-esophageal reflux disease without esophagitis; G89.29 Other chronic pain; M54.9 Dorsalgia, unspecified; Z88.8 Allergy status to other drugs, medicaments and biological substances; Z88.2 Allergy status to sulfonamides; Z79.899 Other long term (current) drug therapy
CPT/HCPCS: 36415; 71045; 80053; 83880; 84484; 85025; 93005; 99285

== ENCOUNTER 2021-05-23 08:40 | Emergency (ER) | payer MEDICARE, BC ==
[~2021-05-23] VITALS: Ht 177.8 cm; Wt 72.7 kg
[2021-05-23 08:50] VITALS: BP 157/89
[2021-05-23 09:16] LABS: BASOPHILS # (AUTO) 0.1 X10'3 (0-0.2); EOSINOPHILS # (AUTO) 0.1 X10'3 (0-0.9); EOSINOPHILS % (AUTO) 1.6 % (0-6); HEMATOCRIT 42.6 % (42.0-52.0); HEMOGLOBIN 14.4 g/dl (14.0-17.9); LYMPHOCYTES # (AUTO) 1.7 X10'3 (1.1-4.8); LYMPHOCYTES % (AUTO) 20.9 % (21-51); MEAN CORPUSCULAR HEMOGLOBIN 29.5 PG (27.0-31.0); MEAN CORPUSCULAR HGB CONC 33.8 g/dL (33.0-36.5); MEAN CORPUSCULAR VOLUME 87.3 FL (78-98); MEAN PLATELET VOLUME 6.8 FL (7.4-10.4); MONOCYTES # (AUTO) 0.7 X10'3 (0-0.9); NEUTROPHILS # (AUTO) 5.4 X10'3 (1.8-7.7); NEUTROPHILS % (AUTO) 67.5 % (42-75); PLATELET COUNT 319 X10'3 (140-440); RED BLOOD COUNT 4.88 X10'6 (4.70-6.10); RED CELL DISTRIBUTION WIDTH 14.4 % (11.5-14.5)
[2021-05-23 09:29] LABS: ALANINE AMINOTRANSFERASE 28 U/L (12-78); ALBUMIN 4.1 G/DL (3.4-5.0); ALBUMIN/GLOBULIN RATIO 1.2 (1.1-1.5); ALKALINE PHOSPHATASE 64 IU/L (46-116); ANION GAP 6 (8-16); ASPARTATE AMINO TRANSFERASE 25 U/L (10-37); BILIRUBIN,TOTAL 0.6 MG/DL (0.1-1.0); BLOOD UREA NITROGEN 16 MG/DL (7-18); BUN/CREATININE RATIO 15.5 (5.4-32.0); CALCIUM 8.4 MG/DL (8.5-10.1); CHLORIDE 102 MMOL/L (99-107); CREATININE 1.03 MG/DL (0.60-1.10); GLUCOSE 104 MG/DL (70-104); SODIUM 140 MMOL/L (135-145); TOTAL CARBON DIOXIDE 31.8 MMOL/L (24-32); TOTAL PROTEIN 7.4 G/DL (6.4-8.2); eGFR 69 ML/MIN
[2021-05-23 11:05] LABS: D-DIMER 0.51 MG/L FEU (0-0.50)
[2021-05-23] MEDS ORDERED: iohexol 350MG/ML 100ml bottle IV ONE (13:22)
== END 2021-05-23 16:39 | disposition home or self-care (01) ==
LOC: ER 08:41
DX: R06.02 Shortness of breath (principal); Z20.822 Contact with and (suspected) exposure to COVID-19; R42 Dizziness and giddiness; R19.7 Diarrhea, unspecified; R55 Syncope and collapse; I48.91 Unspecified atrial fibrillation; I25.10 Atherosclerotic heart disease of native coronary artery without angina pectoris; E78.00 Pure hypercholesterolemia, unspecified; I10 Essential (primary) hypertension; I25.2 Old myocardial infarction; G47.30 Sleep apnea, unspecified; K21.9 Gastro-esophageal reflux disease without esophagitis; G89.29 Other chronic pain; M79.7 Fibromyalgia; Z95.5 Presence of coronary angioplasty implant and graft; Z95.0 Presence of cardiac pacemaker; Z72.89 Other problems related to lifestyle; Z88.8 Allergy status to other drugs, medicaments and biological substances; Z88.2 Allergy status to sulfonamides; Z79.899 Other long term (current) drug therapy
CPT/HCPCS: 36415; 71045; 71275; 74018; 80053; 83880; 84484; 85025; 85379; 87635; 93005; 99285; C9803; Q9967

== ENCOUNTER 2021-06-06 08:35 | Emergency (ER) | payer MEDICARE, BC ==
[~2021-06-06] VITALS: Ht 177.8 cm; Wt 72.7 kg
[2021-06-06 08:50] VITALS: BP 154/92
--- NOTE | 2021-06-06 09:10 | NUR ---
PT PLACED ON 2L O2 VIA NC. PT SATS ARE NOW 97-98% AND PT REPORTS SOB RESOLVED. PT AND SPOUSE REPORTS PT CURRENTLY IN PROCESS OF HAVING 02 SET UP AT HOME TODAY. DISCUSSED CASE WITH DR. DONOHUE AND PT TO BE SEEN BY PROVIDER BEFORE HAVING FURTHER WORKUP ORDERED.
--- NOTE | 2021-06-06 10:57 | NUR ---
WALKED TO [facility] AND VERIFIED PT HAVING O2 SET UP FOR HOME. RECEIVED REPORT PT HAVING O2 SET UP AT HOME THROUGH [facility] FOR SERVICES.
[2021-06-07] MEDS ORDERED: APIX5TAB3 PO (16:00)
[2021-06-07] MEDS ORDERED: SACU1TAB PO (16:01)
[2021-06-07] MEDS ORDERED: PRAM0.253 PO (16:03)
[2021-06-07] MEDS ORDERED: OMEP20TA5 PO (16:04)
[2021-06-07] MEDS ORDERED: MELA5CAP PO (16:06)
[2021-06-07] MEDS ORDERED: MAGN500C17 PO (16:07)
[2021-06-07] MEDS ORDERED: HYDR-3972 PO (16:10)
[2021-06-07] MEDS ORDERED: ASPI-611 PO (16:19)
[2021-06-07] MEDS ORDERED: CHOL20004 PO (16:19)
[2021-06-07] MEDS ORDERED: FLO0.4C PO (16:19)
[2021-06-07] MEDS ORDERED: HYDR10TA PO (16:19)
[2021-06-07] MEDS ORDERED: UMEC62.5 (16:19)
[2021-06-07] MEDS ORDERED: CARV12.529 PO (16:19)
[2021-06-07] MEDS ORDERED: OMEG1CAP21 PO (16:19)
== END 2021-06-06 13:50 | disposition home or self-care (01) ==
LOC: ER 08:35
DX: U07.1 COVID-19 (principal); R09.02 Hypoxemia; R06.82 Tachypnea, not elsewhere classified; I48.91 Unspecified atrial fibrillation; I25.10 Atherosclerotic heart disease of native coronary artery without angina pectoris; E78.00 Pure hypercholesterolemia, unspecified; I10 Essential (primary) hypertension; I25.2 Old myocardial infarction; G47.30 Sleep apnea, unspecified; K21.9 Gastro-esophageal reflux disease without esophagitis; G89.29 Other chronic pain; M79.7 Fibromyalgia; Z95.5 Presence of coronary angioplasty implant and graft; Z87.891 Personal history of nicotine dependence; Z72.89 Other problems related to lifestyle; Z88.8 Allergy status to other drugs, medicaments and biological substances; Z88.2 Allergy status to sulfonamides; Z79.899 Other long term (current) drug therapy
CPT/HCPCS: 93005; 99283

== ENCOUNTER 2021-06-07 11:50 | Inpatient (IN) | payer MEDICARE, BC ==
[~2021-06-07] VITALS: Ht 177.8 cm; Wt 72.0 kg
[2021-06-07] MEDS: K and/or MAG REPLACEMENT MC SCH (00:50)
[2021-06-07 13:14] LABS: BASOPHILS % (AUTO) 0.4 % (0-1); EOSINOPHILS % (AUTO) 0 % (0-6); HEMATOCRIT 37.2 % (42.0-52.0); HEMOGLOBIN 12.7 g/dl (14.0-17.9); LYMPHOCYTES # (AUTO) 0.7 X10'3 (1.1-4.8); LYMPHOCYTES % (AUTO) 9.2 % (21-51); MEAN CORPUSCULAR HEMOGLOBIN 29.5 PG (27.0-31.0); MEAN CORPUSCULAR VOLUME 86.7 FL (78-98); MONOCYTES # (AUTO) 0.5 X10'3 (0-0.9); MONOCYTES % (AUTO) 6.2 % (2-12); NEUTROPHILS # (AUTO) 6.2 X10'3 (1.8-7.7); NEUTROPHILS % (AUTO) 84.2 % (42-75); PLATELET COUNT 176 X10'3 (140-440); WHITE BLOOD COUNT 7.4 X10'3 (4.5-11.0)
[2021-06-07 13:21] LABS: ALANINE AMINOTRANSFERASE 55 U/L (12-78); ALBUMIN 2.9 G/DL (3.4-5.0); ALBUMIN/GLOBULIN RATIO 0.8 (1.1-1.5); ALKALINE PHOSPHATASE 88 IU/L (46-116); ANION GAP 4 (8-16); ASPARTATE AMINO TRANSFERASE 61 U/L (10-37); BILIRUBIN,TOTAL 0.6 MG/DL (0.1-1.0); BLOOD UREA NITROGEN 26 MG/DL (7-18); BUN/CREATININE RATIO 27.4 (5.4-32.0); CALCIUM 7.3 MG/DL (8.5-10.1); CHLORIDE 100 MMOL/L (99-107); CREATININE 0.95 MG/DL (0.60-1.10); GLUCOSE 118 MG/DL (70-104); POTASSIUM 3.3 MMOL/L (3.5-5.1); SODIUM 135 MMOL/L (135-145); TOTAL CARBON DIOXIDE 31.5 MMOL/L (24-32); TOTAL PROTEIN 6.6 G/DL (6.4-8.2); eGFR 76 ML/MIN
[2021-06-07] MEDS ORDERED: HYDROcodone/acetaminophen 10/325mg tab PO ONE (14:40)
[2021-06-07] MEDS ORDERED: dexamethasone 4mg/ml inj IV ONE (15:00)
--- NOTE | 2021-06-07 15:06 | NUR ---
pt has catheter for tarp surgery awaiting from [facility]
[2021-06-07] MEDS ORDERED: REMDESIVIR INJ 200 MG in normal saline 100ml IV soln 100 ML IV ONE (15:25)
[2021-06-07] MEDS ORDERED: morphine 2 MG/ML inj. syringe IV PRN (15:25)
[2021-06-07] MEDS ORDERED: mag hydrox/Alum hydrox/simeth 30ml oral suspension PO PRN (15:25)
[2021-06-07] MEDS ORDERED: ondansetron/PF 4mg/2ml inj IV PRN (15:25)
[2021-06-07] MEDS ORDERED: magnesium hydroxide 30ml (MOM) UD suspension PO PRN (15:25)
[2021-06-07] MEDS ORDERED: acetaminophen 325mg tablet PO PRN ×2 (15:25)
[2021-06-07] MEDS ORDERED: furosemide 40mg/4ml inj IV ONE (15:35)
[2021-06-07] MEDS ORDERED: APIX5TAB3 PO (16:00)
[2021-06-07] MEDS ORDERED: SACU1TAB PO (16:01)
[2021-06-07] MEDS ORDERED: PRAM0.253 PO (16:03)
[2021-06-07] MEDS ORDERED: OMEP20TA5 PO (16:04)
[2021-06-07] MEDS ORDERED: MELA5CAP PO (16:06)
[2021-06-07] MEDS ORDERED: MAGN500C17 PO (16:07)
[2021-06-07] MEDS ORDERED: HYDR-3972 PO (16:10)
[2021-06-07] MEDS ORDERED: HYDR10TA PO (16:19)
[2021-06-07] MEDS ORDERED: CARV12.529 PO (16:19)
[2021-06-07] MEDS ORDERED: CHOL20004 PO (16:19)
[2021-06-07] MEDS ORDERED: ASPI-611 PO (16:19)
[2021-06-07] MEDS ORDERED: UMEC62.5 (16:19)
[2021-06-07] MEDS ORDERED: FLO0.4C PO (16:19)
[2021-06-07] MEDS ORDERED: OMEG1CAP21 PO (16:19)
[2021-06-07 16:40] LABS: D-DIMER 0.53 MG/L FEU (0-0.50)
[2021-06-07 17:02] LABS: C-REACTIVE PROTEIN 15.74 MG/DL (0.0-0.5); FERRITIN 366 NG/ML (26-388); LACTATE DEHYDROGENASE 548 U/L (85-227)
--- NOTE | 2021-06-07 17:07 | NUR ---
REPORT CALLED TO CORDELL ORTIZ PT STATES, IM FEELING BETTER
--- NOTE | 2021-06-07 17:50 | NUR ---
received patient from ER, tucked patient in, on NRB mask at 10L, made comfortable, not in any respiratory distress. will endorse to incoming nurse.
[2021-06-07 17:55] VITALS: BP 132/106
[2021-06-07] MEDS ORDERED: magnesium Cl slow-release 64mg tablet PO PRN (18:15)
[2021-06-07] MEDS ORDERED: magnesium 4gm in 100ml NS 100 ML IV PRN (18:15)
[2021-06-07] MEDS ORDERED: potassium Cl 20 mEq SR tablet PO PRN (18:15)
[2021-06-07] MEDS ORDERED: potassium Cl 40MEQ/1/2NS 520ml 520 ML IV PRN (18:15)
--- NOTE | 2021-06-07 18:40 | NUR ---
Patient in room ED 1. I have received report from CORDELL Randolph and had the opportunity to ask questions and assume patient care.
[2021-06-07] MEDS ORDERED: dexamethasone 4mg/ml inj IV SCH (20:00)
[2021-06-07] MEDS ORDERED: magnesium oxide 400mg tablet PO SCH (20:00)
[2021-06-07] MEDS: furosemide 40mg/4ml inj IV SCH (20:40)
[2021-06-07] MEDS: docusate sod 100mg capsule PO SCH (20:42)
[2021-06-07] MEDS: hydrocortisone 10mg tablet PO SCH (20:43)
[2021-06-07] MEDS: apixaban 5mg tablet PO SCH (20:43)
[2021-06-07] MEDS: pramipexole 0.25mg tablet PO SCH (20:44)
[2021-06-07] MEDS ORDERED: Melatonin 3mg tablet PO SCH (21:00)
[2021-06-07 22:00] VITALS: BP 147/71
[2021-06-07] MEDS: HYDROcodone/acetaminophen 5mg/325mg tablet PO PRN (22:37)
[2021-06-07] MEDS: CefTRIAXone/D5W-Rocephin 1gm 50 ML IV SCH (23:42)
[2021-06-07] MEDS: dexamethasone inj 6 MG in dextrose 5%-water 100 ML IV SCH (23:42)
[2021-06-08] MEDS: potassium Cl 20 mEq SR tablet PO PRN ×3 (00:50→09:29)
[2021-06-08 02:00] VITALS: BP 139/76
--- NOTE | 2021-06-08 06:39 | NUR ---
Problems reprioritized. Patient report given, questions answered & plan of care reviewed with CORDELL Dennis.
[2021-06-08 07:00] VITALS: BP 171/102
--- NOTE | 2021-06-08 07:00 | NUR ---
Patient in room ORTHO 4015. I have received report from Zander and had the opportunity to ask questions and assume patient care.
[2021-06-08] MEDS: docusate sod 100mg capsule PO SCH ×2 (07:43→20:04)
[2021-06-08] MEDS: pantoprazole 40mg Tablet.DR PO SCH (07:43)
[2021-06-08] MEDS: aspirin 81mg, enteric-coated 1 TAB TABLET.DR PO SCH (07:43)
[2021-06-08] MEDS: CefTRIAXone/D5W-Rocephin 1gm 50 ML IV SCH (07:43)
[2021-06-08] MEDS: hydrocortisone 10mg tablet PO SCH ×2 (07:43→20:04)
[2021-06-08] MEDS: tamsulosin 0.4mg capsule PO SCH (07:44)
[2021-06-08] MEDS: pramipexole 0.25mg tablet PO SCH ×3 (07:44→20:03)
[2021-06-08] MEDS: cholecalciferol (vitamin D3) 1,000 unit (25mcg) tablet PO SCH (07:44)
[2021-06-08] MEDS: carVEDilol 12.5mg tablet PO SCH (07:44)
[2021-06-08] MEDS: apixaban 5mg tablet PO SCH ×2 (07:44→20:03)
[2021-06-08] MEDS: furosemide 40mg/4ml inj IV SCH ×2 (07:45→20:04)
[2021-06-08 07:59] LABS: BASOPHILS % (AUTO) 0.2 % (0-1); EOSINOPHILS % (AUTO) 0 % (0-6); HEMATOCRIT 45.9 % (42.0-52.0); HEMOGLOBIN 15.1 g/dl (14.0-17.9); LYMPHOCYTES # (AUTO) 0.5 X10'3 (1.1-4.8); LYMPHOCYTES % (AUTO) 8.1 % (21-51); MEAN CORPUSCULAR HEMOGLOBIN 29.2 PG (27.0-31.0); MEAN CORPUSCULAR HGB CONC 32.9 g/dL (33.0-36.5); MEAN CORPUSCULAR VOLUME 88.5 FL (78-98); MEAN PLATELET VOLUME 7.2 FL (7.4-10.4); MONOCYTES # (AUTO) 0.3 X10'3 (0-0.9); MONOCYTES % (AUTO) 4.9 % (2-12); NEUTROPHILS # (AUTO) 5.6 X10'3 (1.8-7.7); NEUTROPHILS % (AUTO) 86.8 % (42-75); PLATELET COUNT 199 X10'3 (140-440); RED BLOOD COUNT 5.19 X10'6 (4.70-6.10); WHITE BLOOD COUNT 6.4 X10'3 (4.5-11.0)
[2021-06-08] MEDS: K and/or MAG REPLACEMENT MC SCH ×2 (08:00→20:00)
[2021-06-08 08:31] LABS: ANION GAP 10 (8-16); BLOOD UREA NITROGEN 25 MG/DL (7-18); BUN/CREATININE RATIO 32.5 (5.4-32.0); C-REACTIVE PROTEIN 18.82 MG/DL (0.0-0.5); CALCIUM 7.6 MG/DL (8.5-10.1); CHLORIDE 102 MMOL/L (99-107); CREATININE 0.77 MG/DL (0.60-1.10); GLUCOSE 172 MG/DL (70-104); SODIUM 138 MMOL/L (135-145); TOTAL CARBON DIOXIDE 25.9 MMOL/L (24-32); eGFR > 90 ML/MIN
[2021-06-08 09:03] LABS: D-DIMER 0.72 MG/L FEU (0-0.50)
[2021-06-08] MEDS: dexamethasone inj 6 MG in dextrose 5%-water 100 ML IV SCH ×2 (09:19→20:03)
[2021-06-08] MEDS ORDERED: ALBUTEROL INHALER 1 PUFF/90 MCG INHALER IH PRN (09:45)
[2021-06-08 10:00] LABS: LACTATE DEHYDROGENASE 604 U/L (85-227)
[2021-06-08 10:01] LABS: POTASSIUM 4.3 MMOL/L (3.5-5.1)
[2021-06-08 11:00] VITALS: BP 125/50
[2021-06-08] MEDS: HYDROcodone/acetaminophen 5mg/325mg tablet PO PRN ×2 (15:56→21:52)
[2021-06-08 17:00] VITALS: BP 145/81
[2021-06-08 18:00] VITALS: BP 145/81
--- NOTE | 2021-06-08 19:07 | NUR ---
Problems reprioritized. Patient report given, questions answered & plan of care reviewed with Denis.
[2021-06-08] MEDS: lactobacillus rhamnosus 10,000 MMU CELLS/CAPSULE PO SCH (20:03)
[2021-06-08] MEDS: sacubitril/valsartan 24mg-26mg tablet PO SCH (20:03)
--- NOTE | 2021-06-08 20:49 | NUR ---
placed humidifier on HF oxygen and provided oral and nose care, kleenex, wipes for urinal and pads for voiding. pt unable to stand and void without getting SOB. will use bedpan for BM when he is ready.
--- NOTE | 2021-06-08 21:30 | NUR ---
increased oxygen. pt very SOB and high flow had come off. recovered pt on his left side.
[2021-06-08 22:00] VITALS: BP 144/75
[2021-06-08] MEDS ORDERED: REMDESIVIR INJ 200 MG in normal saline 100ml IV soln 100 ML IV ONE (22:10)
--- NOTE | 2021-06-08 23:25 | NUR ---
decreased oxygen to 8L HF and 15 NRB. pt sats stable.
--- NOTE | 2021-06-09 00:19 | NUR ---
placed patient on continuous pulse ox at bedside. pt on 6L HF and 15 NRB
--- NOTE | 2021-06-09 01:24 | NUR ---
maintaining sats 94% on side. with 6LhF and 15 NRB
[2021-06-09 02:14] VITALS: BP 139/72
[2021-06-09] MEDS: HYDROcodone/acetaminophen 5mg/325mg tablet PO PRN ×3 (02:27→19:44)
[2021-06-09] MEDS: guaiFENesin/DM 10ml UD oral syrup PO PRN ×2 (02:27→11:51)
--- NOTE | 2021-06-09 02:39 | NUR ---
took of NRB and increased HF to 8L. will see how patient does at rest. currently on his back. cough syrup for throat pain "tickle"
--- NOTE | 2021-06-09 03:59 | NUR ---
8L HF and 15 NRB to keep sats above 90% while sleeping on his back
--- NOTE | 2021-06-09 06:18 | NUR ---
reported to days noted pt does well on his left side. bedside pulse ox in place.
[2021-06-09 06:29] VITALS: BP 149/89
--- NOTE | 2021-06-09 06:37 | NUR ---
Patient in room ORTHO 4015. I have received report from Adela LANDA and had the opportunity to ask questions and assume patient care.
[2021-06-09] MEDS ORDERED: REMDESIVIR INJ 100 MG in normal saline 100ml IV soln 100 ML IV SCH ×2 (08:00)
[2021-06-09] MEDS: K and/or MAG REPLACEMENT MC SCH ×2 (08:00→20:00)
[2021-06-09] MEDS: lactose-reduced food (Ensure Enlive) - 237ml bottle PO SCH ×3 (08:00→18:00)
[2021-06-09] MEDS: carVEDilol 12.5mg tablet PO SCH (08:11)
[2021-06-09] MEDS: apixaban 5mg tablet PO SCH ×2 (08:11→20:09)
[2021-06-09] MEDS: docusate sod 100mg capsule PO SCH ×2 (08:11→20:09)
[2021-06-09] MEDS: cholecalciferol (vitamin D3) 1,000 unit (25mcg) tablet PO SCH (08:11)
[2021-06-09] MEDS: furosemide 40mg/4ml inj IV SCH ×2 (08:11→20:09)
[2021-06-09] MEDS: sacubitril/valsartan 24mg-26mg tablet PO SCH ×2 (08:11→20:08)
[2021-06-09] MEDS: CefTRIAXone/D5W-Rocephin 1gm 50 ML IV SCH (08:11)
[2021-06-09] MEDS: dexamethasone inj 6 MG in dextrose 5%-water 100 ML IV SCH ×2 (08:11→20:09)
[2021-06-09] MEDS: hydrocortisone 10mg tablet PO SCH ×2 (08:12→20:09)
[2021-06-09] MEDS: aspirin 81mg, enteric-coated 1 TAB TABLET.DR PO SCH (08:12)
[2021-06-09] MEDS: pantoprazole 40mg Tablet.DR PO SCH (08:12)
[2021-06-09] MEDS: lactobacillus rhamnosus 10,000 MMU CELLS/CAPSULE PO SCH ×2 (08:12→20:09)
[2021-06-09] MEDS: tamsulosin 0.4mg capsule PO SCH (08:16)
[2021-06-09 08:38] LABS: BASOPHILS % (AUTO) 0.1 % (0-1); EOSINOPHILS % (AUTO) 0 % (0-6); HEMOGLOBIN 14.1 g/dl (14.0-17.9); LYMPHOCYTES # (AUTO) 0.6 X10'3 (1.1-4.8); LYMPHOCYTES % (AUTO) 4.1 % (21-51); MEAN CORPUSCULAR HEMOGLOBIN 29.2 PG (27.0-31.0); MEAN CORPUSCULAR HGB CONC 33.5 g/dL (33.0-36.5); MEAN CORPUSCULAR VOLUME 87.2 FL (78-98); MEAN PLATELET VOLUME 7.5 FL (7.4-10.4); MONOCYTES # (AUTO) 0.6 X10'3 (0-0.9); MONOCYTES % (AUTO) 3.9 % (2-12); NEUTROPHILS # (AUTO) 14.4 X10'3 (1.8-7.7); NEUTROPHILS % (AUTO) 91.9 % (42-75); PLATELET COUNT 251 X10'3 (140-440); RED BLOOD COUNT 4.82 X10'6 (4.70-6.10); RED CELL DISTRIBUTION WIDTH 13.9 % (11.5-14.5); WHITE BLOOD COUNT 15.6 X10'3 (4.5-11.0)
[2021-06-09 08:51] LABS: ALBUMIN 2.9 G/DL (3.4-5.0); ANION GAP 10 (8-16); BLOOD UREA NITROGEN 26 MG/DL (7-18); BUN/CREATININE RATIO 33.3 (5.4-32.0); C-REACTIVE PROTEIN 7.57 MG/DL (0.0-0.5); CALCIUM 7.6 MG/DL (8.5-10.1); CHLORIDE 99 MMOL/L (99-107); CREATININE 0.78 MG/DL (0.60-1.10); GLUCOSE 144 MG/DL (70-104); LACTATE DEHYDROGENASE 618 U/L (85-227); POTASSIUM 3.6 MMOL/L (3.5-5.1); SODIUM 140 MMOL/L (135-145); TOTAL CARBON DIOXIDE 31.5 MMOL/L (24-32); eGFR > 90 ML/MIN
[2021-06-09 09:02] LABS: D-DIMER 0.88 MG/L FEU (0-0.50)
[2021-06-09 10:27] VITALS: BP 133/71
[2021-06-09 16:01] VITALS: BP 128/78
[2021-06-09 18:00] VITALS: BP 138/72
--- NOTE | 2021-06-09 18:34 | NUR ---
Problems reprioritized. Patient report given, questions answered & plan of care reviewed with Juan LANDA. .
[2021-06-09] MEDS: pramipexole 0.25mg tablet PO SCH (20:09)
[2021-06-09] MEDS: morphine 2 MG/ML inj. syringe IV PRN (20:46)
[2021-06-09 22:00] VITALS: BP 101/52
[2021-06-10] MEDS: guaiFENesin/DM 10ml UD oral syrup PO PRN (00:21)
[2021-06-10 02:00] VITALS: BP 108/65
[2021-06-10 06:00] VITALS: BP 121/73
--- NOTE | 2021-06-10 07:08 | NUR ---
Problems reprioritized. Patient report given, questions answered & plan of care reviewed with CORDELL Pedro.
[2021-06-10] MEDS: furosemide 40mg/4ml inj IV SCH ×2 (07:10→20:58)
[2021-06-10] MEDS: HYDROcodone/acetaminophen 5mg/325mg tablet PO PRN ×4 (07:11→22:35)
[2021-06-10] MEDS: docusate sod 100mg capsule PO SCH ×2 (07:12→20:57)
[2021-06-10] MEDS: apixaban 5mg tablet PO SCH ×2 (07:12→20:57)
[2021-06-10] MEDS: carVEDilol 12.5mg tablet PO SCH (07:12)
[2021-06-10] MEDS: cholecalciferol (vitamin D3) 1,000 unit (25mcg) tablet PO SCH (07:12)
[2021-06-10] MEDS: lactobacillus rhamnosus 10,000 MMU CELLS/CAPSULE PO SCH ×2 (07:13→20:57)
[2021-06-10] MEDS: hydrocortisone 10mg tablet PO SCH ×2 (07:13→20:57)
[2021-06-10] MEDS: pantoprazole 40mg Tablet.DR PO SCH (07:13)
[2021-06-10] MEDS: tamsulosin 0.4mg capsule PO SCH (07:13)
[2021-06-10] MEDS: aspirin 81mg, enteric-coated 1 TAB TABLET.DR PO SCH (07:14)
[2021-06-10] MEDS: CefTRIAXone/D5W-Rocephin 1gm 50 ML IV SCH (07:18)
[2021-06-10] MEDS: dexamethasone inj 6 MG in dextrose 5%-water 100 ML IV SCH ×2 (07:19→20:57)
[2021-06-10] MEDS: lactose-reduced food (Ensure Enlive) - 237ml bottle PO SCH ×3 (08:00→18:00)
[2021-06-10 09:09] LABS: BASOPHILS % (AUTO) 0.1 % (0-1); EOSINOPHILS % (AUTO) 0 % (0-6); HEMATOCRIT 41.7 % (42.0-52.0); LYMPHOCYTES # (AUTO) 0.6 X10'3 (1.1-4.8); LYMPHOCYTES % (AUTO) 4.1 % (21-51); MEAN CORPUSCULAR HEMOGLOBIN 28.9 PG (27.0-31.0); MEAN CORPUSCULAR HGB CONC 33.5 g/dL (33.0-36.5); MEAN CORPUSCULAR VOLUME 86.3 FL (78-98); MEAN PLATELET VOLUME 7.1 FL (7.4-10.4); MONOCYTES # (AUTO) 0.6 X10'3 (0-0.9); NEUTROPHILS # (AUTO) 12.7 X10'3 (1.8-7.7); NEUTROPHILS % (AUTO) 91.8 % (42-75); PLATELET COUNT 299 X10'3 (140-440); RED BLOOD COUNT 4.83 X10'6 (4.70-6.10); RED CELL DISTRIBUTION WIDTH 13.9 % (11.5-14.5); WHITE BLOOD COUNT 13.9 X10'3 (4.5-11.0)
[2021-06-10 09:21] LABS: D-DIMER 0.81 MG/L FEU (0-0.50)
[2021-06-10 09:36] LABS: ALBUMIN 2.9 G/DL (3.4-5.0); ANION GAP 10 (8-16); BLOOD UREA NITROGEN 33 MG/DL (7-18); BUN/CREATININE RATIO 31.7 (5.4-32.0); C-REACTIVE PROTEIN 3.57 MG/DL (0.0-0.5); CALCIUM 7.6 MG/DL (8.5-10.1); CHLORIDE 96 MMOL/L (99-107); CREATININE 1.04 MG/DL (0.60-1.10); GLUCOSE 199 MG/DL (70-104); LACTATE DEHYDROGENASE 578 U/L (85-227); POTASSIUM 3.4 MMOL/L (3.5-5.1); SODIUM 137 MMOL/L (135-145); TOTAL CARBON DIOXIDE 30.9 MMOL/L (24-32); eGFR 68 ML/MIN
--- NOTE | 2021-06-10 09:39 | NUR ---
O2 Sat at rest on room air: 91% If below 89%: Recovery O2 Sat at rest on 2 LPM: 96 %:___% via Nasal Canula (mask/nasal cannula, etc..) No further documentation is necessary. If O2 Sat did not drop below 89% on room air,ambulate patient on room air. O2 Sat while ambulating on room air: 85 % Recovery O2 Sat while ambulating on 2 LPM: 93 % No further documentation is necessary. If patient does not drop below 89% while ambulating, he/she does not qualify for home O2. Addendum: 06/10/21 at 1032 by Janie Castillo RN written on wrong patient.
[2021-06-10 10:30] VITALS: BP 111/62
[2021-06-10] MEDS: K and/or MAG REPLACEMENT MC SCH ×2 (10:33→20:00)
[2021-06-10] MEDS: potassium Cl 20 mEq SR tablet PO PRN (10:33)
[2021-06-10] MEDS: sacubitril/valsartan 24mg-26mg tablet PO SCH ×2 (10:34→20:57)
--- NOTE | 2021-06-10 12:40 | NUR ---
Message: Dr. Dao patient in room 4015B Korey Samuels was requesting to see you. I didn't know when you were planning on rounding, but patient just states he feels worse that days prior and wanted to speak to MD. Thanks Janie pérez Vitals stable at 98.1 HR 72 BP 112/67 93% on 10L NC
--- NOTE | 2021-06-10 12:40 | NUR ---
Diet order changed Per patient he's had chronic swallowing issues for which he sees a specialist for. Pt. would prefer soft or pureed foods. [facility]
[2021-06-10 14:00] VITALS: BP 122/64
[2021-06-10 18:00] VITALS: BP 128/75
[2021-06-10] MEDS: pantoprazole 40MG/NS 100ML BAG 100 ML IV SCH (20:57)
[2021-06-10] MEDS: pramipexole 0.25mg tablet PO SCH (20:57)
[2021-06-10 22:00] VITALS: BP 146/74
--- NOTE | 2021-06-11 00:16 | NUR ---
patient resting in bed comfortable. On 10L NC saturations 96%. Oxly given for a headache. No other complaints at this time. Will continue to monitor.
[2021-06-11 02:00] VITALS: BP 121/78
[2021-06-11 06:00] VITALS: BP 131/73
--- NOTE | 2021-06-11 06:39 | NUR ---
Patient in room ORTHO 4015. I have received report from CORDELL PEREZ, and had the opportunity to ask questions and assume patient care.
[2021-06-11] MEDS: pantoprazole 40MG/NS 100ML BAG 100 ML IV SCH ×2 (07:44→20:16)
[2021-06-11] MEDS: apixaban 5mg tablet PO SCH ×2 (07:47→19:12)
[2021-06-11] MEDS: aspirin 81mg, enteric-coated 1 TAB TABLET.DR PO SCH (07:47)
[2021-06-11] MEDS: furosemide 40mg/4ml inj IV SCH ×2 (07:48→19:11)
[2021-06-11] MEDS: lactobacillus rhamnosus 10,000 MMU CELLS/CAPSULE PO SCH ×2 (07:48→19:12)
[2021-06-11] MEDS: cholecalciferol (vitamin D3) 1,000 unit (25mcg) tablet PO SCH (07:48)
[2021-06-11] MEDS: docusate sod 100mg capsule PO SCH ×2 (07:48→19:11)
[2021-06-11] MEDS: carVEDilol 12.5mg tablet PO SCH (07:48)
[2021-06-11] MEDS: tamsulosin 0.4mg capsule PO SCH (07:48)
[2021-06-11] MEDS: sacubitril/valsartan 24mg-26mg tablet PO SCH ×2 (07:48→20:16)
[2021-06-11] MEDS: hydrocortisone 10mg tablet PO SCH ×2 (07:48→19:12)
[2021-06-11] MEDS: dexamethasone inj 6 MG in dextrose 5%-water 100 ML IV SCH ×2 (07:54→19:15)
[2021-06-11] MEDS: K and/or MAG REPLACEMENT MC SCH ×2 (08:00→20:00)
[2021-06-11] MEDS: lactose-reduced food (Ensure Enlive) - 237ml bottle PO SCH ×3 (08:00→18:55)
[2021-06-11 08:09] LABS: BASOPHILS % (AUTO) 0 % (0-1); EOSINOPHILS % (AUTO) 0 % (0-6); HEMATOCRIT 41.8 % (42.0-52.0); HEMOGLOBIN 13.9 g/dl (14.0-17.9); LYMPHOCYTES # (AUTO) 0.6 X10'3 (1.1-4.8); LYMPHOCYTES % (AUTO) 4.7 % (21-51); MEAN CORPUSCULAR HEMOGLOBIN 28.7 PG (27.0-31.0); MEAN CORPUSCULAR HGB CONC 33.4 g/dL (33.0-36.5); MEAN CORPUSCULAR VOLUME 86.2 FL (78-98); MEAN PLATELET VOLUME 7.1 FL (7.4-10.4); MONOCYTES # (AUTO) 0.7 X10'3 (0-0.9); MONOCYTES % (AUTO) 5.2 % (2-12); NEUTROPHILS # (AUTO) 11.9 X10'3 (1.8-7.7); NEUTROPHILS % (AUTO) 90.1 % (42-75); PLATELET COUNT 324 X10'3 (140-440); RED BLOOD COUNT 4.85 X10'6 (4.70-6.10); RED CELL DISTRIBUTION WIDTH 13.9 % (11.5-14.5); WHITE BLOOD COUNT 13.2 X10'3 (4.5-11.0)
[2021-06-11 08:25] LABS: D-DIMER 0.92 MG/L FEU (0-0.50)
--- NOTE | 2021-06-11 08:35 | NUR ---
Initial: Pt admitted w/ acute respiratory failure secondary to Covid per EMR, currently on 9L high flow oxygen. Pt currently on Heart healthy diet w/ Puree added 06/10 d/t pt preference and difficulty w/ swallowing per documentation. Currently w/ 50% intake x 9 meals partially meeting needs though Ensure Enlive TID was ordered 06/09. Recommend liberalizing to Regular diet in view of geriatric age. LBM 06/06 receiving routine colace. Will continue to monitor. Recs: 1. Continue Heart healthy/Puree diet; puree per pt preference 2. Ensure Enlive TID 3. Bowel care per rx 4. Weekly wts Addendum: 06/11/21 at [address] Amended: Links added.
[2021-06-11 08:41] LABS: ALBUMIN 2.8 G/DL (3.4-5.0); ANION GAP 5 (8-16); BLOOD UREA NITROGEN 37 MG/DL (7-18); BUN/CREATININE RATIO 45.1 (5.4-32.0); C-REACTIVE PROTEIN 2.32 MG/DL (0.0-0.5); CALCIUM 7.3 MG/DL (8.5-10.1); CHLORIDE 100 MMOL/L (99-107); CREATININE 0.82 MG/DL (0.60-1.10); GLUCOSE 139 MG/DL (70-104); LACTATE DEHYDROGENASE 519 U/L (85-227); POTASSIUM 3.7 MMOL/L (3.5-5.1); SODIUM 139 MMOL/L (135-145); TOTAL CARBON DIOXIDE 34.3 MMOL/L (24-32); eGFR 90 ML/MIN
[2021-06-11 10:00] VITALS: BP 101/55
[2021-06-11] MEDS: CefTRIAXone/D5W-Rocephin 1gm 50 ML IV SCH (10:12)
[2021-06-11] MEDS: HYDROcodone/acetaminophen 5mg/325mg tablet PO PRN ×2 (11:15→19:13)
[2021-06-11] MEDS ORDERED: iohexol 350MG/ML 100ml bottle IV ONE (11:47)
[2021-06-11 15:00] VITALS: BP 151/100
[2021-06-11 18:00] VITALS: BP 119/71
--- NOTE | 2021-06-11 18:27 | NUR ---
Problems reprioritized. Patient report given, questions answered & plan of care reviewed with CORDELL GEORGES.
--- NOTE | 2021-06-11 18:30 | NUR ---
Patient in room ORTHO 4015. I have received report from HEIDY TOSCANO and had the opportunity to ask questions and assume patient care.
[2021-06-11] MEDS: pramipexole 0.25mg tablet PO SCH (20:16)
[2021-06-11] MEDS: morphine 2 MG/ML inj. syringe IV PRN (21:23)
[2021-06-11 22:00] VITALS: BP 117/63
[2021-06-12] MEDS: HYDROcodone/acetaminophen 5mg/325mg tablet PO PRN ×4 (00:51→20:22)
[2021-06-12] MEDS: morphine 2 MG/ML inj. syringe IV PRN ×3 (01:29→21:40)
[2021-06-12 02:00] VITALS: BP 116/57
[2021-06-12 06:00] VITALS: BP 126/69
--- NOTE | 2021-06-12 06:13 | NUR ---
Problems reprioritized. Patient report given, questions answered & plan of care reviewed with damaris Macias.
[2021-06-12] MEDS: furosemide 40mg/4ml inj IV SCH ×2 (07:11→19:23)
[2021-06-12] MEDS: pantoprazole 40MG/NS 100ML BAG 100 ML IV SCH ×2 (07:12→20:22)
[2021-06-12] MEDS: aspirin 81mg, enteric-coated 1 TAB TABLET.DR PO SCH (07:12)
[2021-06-12] MEDS: hydrocortisone 10mg tablet PO SCH ×2 (07:12→19:22)
[2021-06-12] MEDS: docusate sod 100mg capsule PO SCH ×2 (07:12→19:22)
[2021-06-12] MEDS: apixaban 5mg tablet PO SCH ×2 (07:12→19:21)
[2021-06-12] MEDS: CefTRIAXone/D5W-Rocephin 1gm 50 ML IV SCH (07:12)
[2021-06-12] MEDS: tamsulosin 0.4mg capsule PO SCH (07:12)
[2021-06-12] MEDS: lactobacillus rhamnosus 10,000 MMU CELLS/CAPSULE PO SCH ×2 (07:12→19:22)
[2021-06-12] MEDS: dexamethasone inj 6 MG in dextrose 5%-water 100 ML IV SCH ×2 (07:12→19:22)
[2021-06-12] MEDS: carVEDilol 12.5mg tablet PO SCH (07:13)
[2021-06-12] MEDS: cholecalciferol (vitamin D3) 1,000 unit (25mcg) tablet PO SCH (07:13)
[2021-06-12] MEDS: sacubitril/valsartan 24mg-26mg tablet PO SCH ×2 (07:15→19:22)
[2021-06-12 07:16] LABS: BASOPHILS % (AUTO) 0.1 % (0-1); EOSINOPHILS % (AUTO) 0 % (0-6); HEMATOCRIT 39.8 % (42.0-52.0); HEMOGLOBIN 13.4 g/dl (14.0-17.9); LYMPHOCYTES # (AUTO) 0.6 X10'3 (1.1-4.8); LYMPHOCYTES % (AUTO) 4.6 % (21-51); MEAN CORPUSCULAR HEMOGLOBIN 29.2 PG (27.0-31.0); MEAN CORPUSCULAR HGB CONC 33.7 g/dL (33.0-36.5); MEAN CORPUSCULAR VOLUME 86.6 FL (78-98); MEAN PLATELET VOLUME 7.2 FL (7.4-10.4); MONOCYTES # (AUTO) 0.6 X10'3 (0-0.9); MONOCYTES % (AUTO) 4.8 % (2-12); NEUTROPHILS # (AUTO) 11.3 X10'3 (1.8-7.7); NEUTROPHILS % (AUTO) 90.5 % (42-75); PLATELET COUNT 346 X10'3 (140-440); WHITE BLOOD COUNT 12.5 X10'3 (4.5-11.0)
[2021-06-12 07:17] LABS: D-DIMER 0.86 MG/L FEU (0-0.50)
[2021-06-12 07:55] LABS: ALBUMIN 2.8 G/DL (3.4-5.0); ANION GAP 6 (8-16); BLOOD UREA NITROGEN 40 MG/DL (7-18); BUN/CREATININE RATIO 44.4 (5.4-32.0); C-REACTIVE PROTEIN 1.78 MG/DL (0.0-0.5); CALCIUM 7.3 MG/DL (8.5-10.1); CHLORIDE 99 MMOL/L (99-107); GLUCOSE 132 MG/DL (70-104); LACTATE DEHYDROGENASE 523 U/L (85-227); POTASSIUM 3.6 MMOL/L (3.5-5.1); SODIUM 139 MMOL/L (135-145); TOTAL CARBON DIOXIDE 34.1 MMOL/L (24-32); eGFR 80 ML/MIN
[2021-06-12] MEDS: lactose-reduced food (Ensure Enlive) - 237ml bottle PO SCH ×3 (08:00→18:00)
[2021-06-12] MEDS: K and/or MAG REPLACEMENT MC SCH ×2 (08:39→20:00)
--- NOTE | 2021-06-12 10:59 | NUR ---
pt states his positive covid test was 06/06/21
[2021-06-12 12:32] VITALS: BP 140/62
[2021-06-12 15:44] VITALS: BP 140/64
[2021-06-12] MEDS ORDERED: morphine 2 MG/ML inj. syringe IV PRN (16:10)
[2021-06-12 18:00] VITALS: BP 132/57
[2021-06-12] MEDS: pramipexole 0.25mg tablet PO SCH (19:22)
[2021-06-12] MEDS: guaiFENesin/DM 10ml UD oral syrup PO PRN (21:09)
[2021-06-12 22:00] VITALS: BP 123/75
[2021-06-13 02:00] VITALS: BP 114/81
[2021-06-13 06:00] VITALS: BP 126/75
--- NOTE | 2021-06-13 06:48 | NUR ---
Patient in room ORTHO 4015. I have received report from Marj and had the opportunity to ask questions and assume patient care.
[2021-06-13] MEDS: dexamethasone inj 6 MG in dextrose 5%-water 100 ML IV SCH ×2 (07:33→20:31)
[2021-06-13] MEDS: pantoprazole 40MG/NS 100ML BAG 100 ML IV SCH ×2 (07:36→20:30)
[2021-06-13] MEDS: docusate sod 100mg capsule PO SCH ×2 (07:41→20:31)
[2021-06-13] MEDS: tamsulosin 0.4mg capsule PO SCH (07:42)
[2021-06-13] MEDS: apixaban 5mg tablet PO SCH ×2 (07:42→20:31)
[2021-06-13] MEDS: aspirin 81mg, enteric-coated 1 TAB TABLET.DR PO SCH (07:42)
[2021-06-13] MEDS: cholecalciferol (vitamin D3) 1,000 unit (25mcg) tablet PO SCH (07:42)
[2021-06-13] MEDS: carVEDilol 12.5mg tablet PO SCH (07:42)
[2021-06-13] MEDS: hydrocortisone 10mg tablet PO SCH ×2 (07:42→20:31)
[2021-06-13] MEDS: lactobacillus rhamnosus 10,000 MMU CELLS/CAPSULE PO SCH ×2 (07:42→20:31)
[2021-06-13] MEDS: lactose-reduced food (Ensure Enlive) - 237ml bottle PO SCH ×3 (07:44→18:42)
[2021-06-13] MEDS: furosemide 20 MG/2 ML vial IV SCH ×2 (07:52→20:31)
[2021-06-13] MEDS: sacubitril/valsartan 24mg-26mg tablet PO SCH ×2 (07:58→20:32)
[2021-06-13] MEDS: HYDROcodone/acetaminophen 5mg/325mg tablet PO PRN ×2 (07:59→18:43)
[2021-06-13] MEDS: K and/or MAG REPLACEMENT MC SCH ×2 (08:00→19:00)
[2021-06-13] MEDS: CefTRIAXone/D5W-Rocephin 1gm 50 ML IV SCH (08:01)
[2021-06-13 08:39] LABS: C-REACTIVE PROTEIN 1.5 MG/DL (0.0-0.5)
[2021-06-13 09:10] LABS: D-DIMER 0.86 MG/L FEU (0-0.50)
[2021-06-13 10:00] VITALS: BP 105/51
[2021-06-13] MEDS: morphine 2 MG/ML inj. syringe IV PRN (17:16)
[2021-06-13 18:00] VITALS: BP 158/63
[2021-06-13] MEDS: pramipexole 0.25mg tablet PO SCH (20:31)
[2021-06-13 22:00] VITALS: BP 108/53
[2021-06-14 02:00] VITALS: BP 131/72
[2021-06-14] MEDS: HYDROcodone/acetaminophen 5mg/325mg tablet PO PRN (03:24)
[2021-06-14 07:51] LABS: BASOPHILS % (AUTO) 0.1 % (0-1); EOSINOPHILS % (AUTO) 0 % (0-6); HEMOGLOBIN 12.9 g/dl (14.0-17.9); LYMPHOCYTES # (AUTO) 0.5 X10'3 (1.1-4.8); LYMPHOCYTES % (AUTO) 4.9 % (21-51); MEAN CORPUSCULAR HEMOGLOBIN 29.1 PG (27.0-31.0); MEAN CORPUSCULAR HGB CONC 33.9 g/dL (33.0-36.5); MEAN CORPUSCULAR VOLUME 85.8 FL (78-98); MONOCYTES # (AUTO) 0.4 X10'3 (0-0.9); MONOCYTES % (AUTO) 4.5 % (2-12); NEUTROPHILS # (AUTO) 8.8 X10'3 (1.8-7.7); NEUTROPHILS % (AUTO) 90.5 % (42-75); PLATELET COUNT 381 X10'3 (140-440); RED BLOOD COUNT 4.43 X10'6 (4.70-6.10); RED CELL DISTRIBUTION WIDTH 13.8 % (11.5-14.5); WHITE BLOOD COUNT 9.7 X10'3 (4.5-11.0)
[2021-06-14] MEDS: K and/or MAG REPLACEMENT MC SCH (08:00)
[2021-06-14] MEDS: docusate sod 100mg capsule PO SCH (08:00)
[2021-06-14 08:37] LABS: ALANINE AMINOTRANSFERASE 36 U/L (12-78); ALBUMIN 2.7 G/DL (3.4-5.0); ALKALINE PHOSPHATASE 64 IU/L (46-116); ANION GAP 6 (8-16); ASPARTATE AMINO TRANSFERASE 24 U/L (10-37); BILIRUBIN,TOTAL 0.7 MG/DL (0.1-1.0); BLOOD UREA NITROGEN 37 MG/DL (7-18); BUN/CREATININE RATIO 43.5 (5.4-32.0); C-REACTIVE PROTEIN 1.29 MG/DL (0.0-0.5); CALCIUM 7.5 MG/DL (8.5-10.1); CHLORIDE 97 MMOL/L (99-107); CREATININE 0.85 MG/DL (0.60-1.10); GLUCOSE 141 MG/DL (70-104); LACTATE DEHYDROGENASE 430 U/L (85-227); MAGNESIUM 2.3 MG/DL (1.5-2.4); PHOSPHORUS 3.4 MG/DL (2.3-4.5); POTASSIUM 3.7 MMOL/L (3.5-5.1); SODIUM 136 MMOL/L (135-145); TOTAL CARBON DIOXIDE 33.1 MMOL/L (24-32); TOTAL PROTEIN 5.3 G/DL (6.4-8.2); eGFR 86 ML/MIN
[2021-06-14] MEDS: furosemide 20 MG/2 ML vial IV SCH (09:06)
[2021-06-14] MEDS: dexamethasone inj 6 MG in dextrose 5%-water 100 ML IV SCH (09:06)
[2021-06-14] MEDS: aspirin 81mg, enteric-coated 1 TAB TABLET.DR PO SCH (09:16)
[2021-06-14] MEDS: cholecalciferol (vitamin D3) 1,000 unit (25mcg) tablet PO SCH (09:16)
[2021-06-14] MEDS: carVEDilol 12.5mg tablet PO SCH (09:17)
[2021-06-14 09:32] LABS: D-DIMER 0.61 MG/L FEU (0-0.50)
[2021-06-14] MEDS: tamsulosin 0.4mg capsule PO SCH (09:46)
[2021-06-14] MEDS: apixaban 5mg tablet PO SCH (09:46)
[2021-06-14] MEDS: lactobacillus rhamnosus 10,000 MMU CELLS/CAPSULE PO SCH (09:46)
[2021-06-14] MEDS: pantoprazole 40MG/NS 100ML BAG 100 ML IV SCH (09:47)
[2021-06-14] MEDS: morphine 2 MG/ML inj. syringe IV PRN (09:59)
[2021-06-14] MEDS: hydrocortisone 10mg tablet PO SCH (10:25)
[2021-06-14] MEDS: sacubitril/valsartan 24mg-26mg tablet PO SCH (10:25)
== END 2021-06-14 13:45 | DRG 177 ==
LOC: ER 11:51 → ED HOLD 15:27 → ORTHO 4S 17:30
PROVIDERS: ADMIT Internal Medicine; ATTEND Internal Medicine
PROC: 5A0935A Assistance with Respiratory Ventilation, Less than 24 Consecutive Hours, High Flow/Velocity Cannula (ICD-10-PCS; principal; 2021-06-08)
PROC: 5A0935A Assistance with Respiratory Ventilation, Less than 24 Consecutive Hours, High Flow/Velocity Cannula (ICD-10-PCS; 2021-06-09)
PROC: 5A0935A Assistance with Respiratory Ventilation, Less than 24 Consecutive Hours, High Flow/Velocity Cannula (ICD-10-PCS; 2021-06-10)
PROC: B32T1ZZ Computerized Tomography (CT Scan) of Left Pulmonary Artery using Low Osmolar Contrast (ICD-10-PCS; 2021-06-11)
PROC: B3201ZZ Computerized Tomography (CT Scan) of Thoracic Aorta using Low Osmolar Contrast (ICD-10-PCS; 2021-06-11)
PROC: B32S1ZZ Computerized Tomography (CT Scan) of Right Pulmonary Artery using Low Osmolar Contrast (ICD-10-PCS; 2021-06-11)
PROC: 5A0935A Assistance with Respiratory Ventilation, Less than 24 Consecutive Hours, High Flow/Velocity Cannula (ICD-10-PCS; 2021-06-13)
PROC: 5A0935A Assistance with Respiratory Ventilation, Less than 24 Consecutive Hours, High Flow/Velocity Cannula (ICD-10-PCS; 2021-06-14)
DX: U07.1 COVID-19 (principal); J96.01 Acute respiratory failure with hypoxia; J12.82 Pneumonia due to coronavirus disease 2019; J44.0 Chronic obstructive pulmonary disease with (acute) lower respiratory infection; E78.00 Pure hypercholesterolemia, unspecified; Z96.653 Presence of artificial knee joint, bilateral; G47.30 Sleep apnea, unspecified; I10 Essential (primary) hypertension; G89.29 Other chronic pain; K21.9 Gastro-esophageal reflux disease without esophagitis; M54.9 Dorsalgia, unspecified; I25.10 Atherosclerotic heart disease of native coronary artery without angina pectoris; I48.0 Paroxysmal atrial fibrillation; M79.7 Fibromyalgia; N40.0 Benign prostatic hyperplasia without lower urinary tract symptoms; Z95.1 Presence of aortocoronary bypass graft; Z79.01 Long term (current) use of anticoagulants; Z79.82 Long term (current) use of aspirin; I25.2 Old myocardial infarction; Z87.891 Personal history of nicotine dependence; Z88.2 Allergy status to sulfonamides; Z88.8 Allergy status to other drugs, medicaments and biological substances; Z95.0 Presence of cardiac pacemaker; Z82.49 Family history of ischemic heart disease and other diseases of the circulatory system; Z82.3 Family history of stroke; Z83.3 Family history of diabetes mellitus; Z79.899 Other long term (current) drug therapy
CPT/HCPCS: 36415; 71045; 71275; 80048; 80053; 82728; 83615; 83735; 83880; 84100; 84145; 85025; 85379; 86140; 87081; 93005; 93306; 94760; 96374; 97110; 97161; 97530; 99285; C9113; G0378; J0696; J1100; J1940; J2270; J2405; J7060; Q9967